=== PATIENT | female | born 1930 | race Caucasian/White ===

== ENCOUNTER → 2016-07-14 | Outpatient (CLI) | payer MEDICARE ==
[2016-07-14 11:03] LABS: ANION GAP 13 (5-19); BLOOD UREA NITROGEN 69 mg/dL (7-20); CALCIUM 10.1 mg/dL (8.4-10.2); CARBON DIOXIDE 27 mmol/L (22-30); CHLORIDE 106 mmol/L (98-107); CREATININE RESULT 3.31 mg/dL (0.52-1.25); GLUCOSE 86 mg/dL (75-110); POTASSIUM 4.1 mmol/L (3.6-5.0); SODIUM 145.6 mmol/L (137-145)
[2016-07-14 17:09] LABS: HEMATOCRIT 29.3 % (36.0-47.0); HGB HCT DIFFERENCE 0.7; MEAN CORPUSCULAR HEMOGLOBIN 31.8 pg (27.0-33.4); MEAN CORPUSCULAR HGB CONC 34.1 g/dL (32.0-36.0); MEAN CORPUSCULAR VOLUME 93 fl (80-97); RED BLOOD COUNT 3.15 10^6/uL (3.72-5.28); RED CELL DISTRIBUTION WIDTH 15.5 % (11.5-14.0)
[2016-07-14 17:38] LABS: WHITE BLOOD COUNT 4.6 10^3/uL (4.0-10.5)
[2016-07-14 18:33] LABS: APPEARANCE,URINE SLIGHTLY-CLOUDY; BILIRUBIN,URINE NEGATIVE (NEGATIVE); GLUCOSE, URINE 50 mg/dL (NEGATIVE); KETONES,URINE NEGATIVE (NEGATIVE); LEUKOCYTE ESTERASE,URINE LARGE (NEGATIVE); NITRITE,URINE NEGATIVE (NEGATIVE); PROTEIN,URINE >=500 mg/dL (NEGATIVE); URINE SPECIFIC GRAVITY 1.012; UROBILINOGEN,URINE NEGATIVE mg/dL (<2.0)
== END ==
LOC: OD 09:49
PROVIDERS: ATTEND Internal Medicine Nephrology
DX: N18.4 Chronic kidney disease, stage 4 (severe) (principal); N39.0 Urinary tract infection, site not specified; R80.9 Proteinuria, unspecified; D64.9 Anemia, unspecified; R31.9 Hematuria, unspecified
CPT/HCPCS: 36415; 80048; 81001; 82728; 83540; 83550; 85027; 87086

== ENCOUNTER → 2016-08-14 | Outpatient (CLI) | payer MEDICARE | LOC: OD 09:33 | PROVIDERS: ATTEND Internal Medicine Nephrology | DX: D64.9 Anemia, unspecified (principal); N18.4 Chronic kidney disease, stage 4 (severe) | CPT/HCPCS: 36415; 82728; 83540; 83550 ==

== ENCOUNTER → 2016-09-12 | Outpatient (CLI) | payer MEDICARE ==
[2016-09-12 10:15] LABS: HEMATOCRIT 27.2 % (36.0-47.0); HEMOGLOBIN 9.2 g/dL (12.0-15.5); HGB HCT DIFFERENCE 0.4; MEAN CORPUSCULAR HEMOGLOBIN 32.1 pg (27.0-33.4); MEAN CORPUSCULAR VOLUME 95 fl (80-97); RED BLOOD COUNT 2.88 10^6/uL (3.72-5.28); RED CELL DISTRIBUTION WIDTH 16.7 % (11.5-14.0)
== END ==
LOC: OD 08:59
PROVIDERS: ATTEND Internal Medicine Nephrology
DX: N18.3 Chronic kidney disease, stage 3 (moderate) (principal); D64.9 Anemia, unspecified
CPT/HCPCS: 36415; 82728; 83540; 83550; 85027

== ENCOUNTER → 2016-11-10 | Outpatient (CLI) | payer MEDICARE ==
[2016-11-10 09:37] LABS: ALANINE AMINOTRANSFERASE 26 U/L (9-52); ALBUMIN 3.8 g/dL (3.5-5.0); ALKALINE PHOSPHATASE 137 U/L (38-126); ANION GAP 10 (5-19); ASPARTATE AMINO TRANSFERASE 20 U/L (14-36); BILIRUBIN,DIRECT 0.6 mg/dL (0.0-0.4); BILIRUBIN,TOTAL 0.6 mg/dL (0.2-1.3); BLOOD UREA NITROGEN 61 mg/dL (7-20); CARBON DIOXIDE 25 mmol/L (22-30); CHLORIDE 106 mmol/L (98-107); CREATININE RESULT 3.86 mg/dL (0.52-1.25); GLUCOSE 88 mg/dL (75-110); POTASSIUM 4.3 mmol/L (3.6-5.0); SODIUM 141.3 mmol/L (137-145); TOTAL PROTEIN 6.6 g/dL (6.3-8.2)
[2016-11-10 11:48] LABS: HEMATOCRIT 29.5 % (36.0-47.0); HGB HCT DIFFERENCE 0.5; MEAN CORPUSCULAR HEMOGLOBIN 33.5 pg (27.0-33.4); MEAN CORPUSCULAR VOLUME 99 fl (80-97); RED BLOOD COUNT 2.99 10^6/uL (3.72-5.28); RED CELL DISTRIBUTION WIDTH 14.9 % (11.5-14.0); WHITE BLOOD COUNT 4.6 10^3/uL (4.0-10.5)
== END ==
LOC: OD 08:40
PROVIDERS: ATTEND Internal Medicine Nephrology
DX: N18.4 Chronic kidney disease, stage 4 (severe) (principal); D64.9 Anemia, unspecified; R80.9 Proteinuria, unspecified; I50.9 Heart failure, unspecified
CPT/HCPCS: 36415; 80053; 82728; 83540; 83550; 85027

== ENCOUNTER → 2017-02-13 | Outpatient (CLI) | payer MEDICARE ==
[2017-02-13 11:09] LABS: HEMATOCRIT 30.2 % (36.0-47.0); HEMOGLOBIN 9.9 g/dL (12.0-15.5); HGB HCT DIFFERENCE -0.5; MEAN CORPUSCULAR HGB CONC 32.7 g/dL (32.0-36.0); MEAN CORPUSCULAR VOLUME 101 fl (80-97); RED BLOOD COUNT 2.99 10^6/uL (3.72-5.28); RED CELL DISTRIBUTION WIDTH 16.4 % (11.5-14.0); WHITE BLOOD COUNT 3.4 10^3/uL (4.0-10.5)
[2017-02-13 11:39] LABS: ANION GAP 13 (5-19); BLOOD UREA NITROGEN 71 mg/dL (7-20); CALCIUM 9.4 mg/dL (8.4-10.2); CARBON DIOXIDE 21 mmol/L (22-30); CHLORIDE 108 mmol/L (98-107); CREATININE RESULT 3.51 mg/dL (0.52-1.25); GLUCOSE 207 mg/dL (75-110); MAGNESIUM 2.3 mg/dL (1.6-2.3); POTASSIUM 4.2 mmol/L (3.6-5.0); SODIUM 141.6 mmol/L (137-145)
[2017-02-13 11:59] LABS: APPEARANCE,URINE SLIGHTLY-CLOUDY; BILIRUBIN,URINE NEGATIVE (NEGATIVE); GLUCOSE, URINE 50 mg/dL (NEGATIVE); KETONES,URINE NEGATIVE (NEGATIVE); LEUKOCYTE ESTERASE,URINE MODERATE (NEGATIVE); NITRITE,URINE NEGATIVE (NEGATIVE); PROTEIN,URINE >=500 mg/dL (NEGATIVE); URINE SPECIFIC GRAVITY 1.011; UROBILINOGEN,URINE NEGATIVE mg/dL (<2.0)
== END ==
LOC: OD 10:17
PROVIDERS: ATTEND Internal Medicine Nephrology
DX: N18.4 Chronic kidney disease, stage 4 (severe) (principal); D64.9 Anemia, unspecified; R80.9 Proteinuria, unspecified; E11.9 Type 2 diabetes mellitus without complications
CPT/HCPCS: 36415; 80048; 81001; 82728; 83540; 83550; 83735; 85027

== ENCOUNTER → 2017-05-18 | Outpatient (CLI) | payer MEDICARE ==
[2017-05-18 11:58] LABS: HEMATOCRIT 33.1 % (36.0-47.0); HGB HCT DIFFERENCE -0.1; MEAN CORPUSCULAR HGB CONC 33.4 g/dL (32.0-36.0); MEAN CORPUSCULAR VOLUME 99 fl (80-97); RED BLOOD COUNT 3.35 10^6/uL (3.72-5.28); RED CELL DISTRIBUTION WIDTH 16.2 % (11.5-14.0); WHITE BLOOD COUNT 4.2 10^3/uL (4.0-10.5)
== END ==
LOC: OD 10:33
PROVIDERS: ATTEND Internal Medicine Nephrology
DX: N18.4 Chronic kidney disease, stage 4 (severe) (principal); D64.9 Anemia, unspecified
CPT/HCPCS: 36415; 82728; 83540; 83550; 85027

== ENCOUNTER → 2017-06-15 | Outpatient (CLI) | payer MEDICARE ==
[2017-06-15 11:31] LABS: HEMATOCRIT 30.7 % (36.0-47.0); HEMOGLOBIN 10.2 g/dL (12.0-15.5); HGB HCT DIFFERENCE -0.1; MEAN CORPUSCULAR HEMOGLOBIN 32.6 pg (27.0-33.4); MEAN CORPUSCULAR HGB CONC 33.2 g/dL (32.0-36.0); MEAN CORPUSCULAR VOLUME 98 fl (80-97); RED BLOOD COUNT 3.13 10^6/uL (3.72-5.28); WHITE BLOOD COUNT 5.3 10^3/uL (4.0-10.5)
[2017-06-15 11:50] LABS: APPEARANCE,URINE SLIGHTLY-CLOUDY; BILIRUBIN,URINE NEGATIVE (NEGATIVE); GLUCOSE, URINE 50 mg/dL (NEGATIVE); KETONES,URINE NEGATIVE (NEGATIVE); LEUKOCYTE ESTERASE,URINE SMALL (NEGATIVE); NITRITE,URINE NEGATIVE (NEGATIVE); PROTEIN,URINE >=500 mg/dL (NEGATIVE); URINE SPECIFIC GRAVITY 1.011; UROBILINOGEN,URINE NEGATIVE mg/dL (<2.0)
[2017-06-15 12:11] LABS: ANION GAP 16 (5-19); BLOOD UREA NITROGEN 62 mg/dL (7-20); CALCIUM 9.7 mg/dL (8.4-10.2); CARBON DIOXIDE 19 mmol/L (22-30); CHLORIDE 112 mmol/L (98-107); CREATININE RESULT 4.32 mg/dL (0.52-1.25); GLUCOSE 108 mg/dL (75-110); MAGNESIUM 1.9 mg/dL (1.6-2.3); POTASSIUM 4.1 mmol/L (3.6-5.0); SODIUM 146.5 mmol/L (137-145)
[2017-06-15 12:50] LABS: URINE CREATININE 56.8 mg/dL (15-278)
[2017-06-15 13:18] LABS: URINE PROTEIN 732.1 mg/dL (<12)
== END ==
LOC: OD 11:06
PROVIDERS: ATTEND Internal Medicine Nephrology
DX: I12.9 Hypertensive chronic kidney disease with stage 1 through stage 4 chronic kidney disease, or unspecified chronic kidney disease (principal); N18.9 Chronic kidney disease, unspecified; E11.9 Type 2 diabetes mellitus without complications; R80.9 Proteinuria, unspecified; I50.9 Heart failure, unspecified
CPT/HCPCS: 36415; 80048; 81001; 82570; 83735; 84156; 85027

== ENCOUNTER → 2017-07-07 | Outpatient (CLI) | payer MEDICARE ==
[2017-07-07 10:17] LABS: HEMATOCRIT 29.3 % (36.0-47.0); HEMOGLOBIN 9.6 g/dL (12.0-15.5); MEAN CORPUSCULAR HEMOGLOBIN 32.2 pg (27.0-33.4); MEAN CORPUSCULAR HGB CONC 32.8 g/dL (32.0-36.0); MEAN CORPUSCULAR VOLUME 98 fl (80-97); PLATELET COUNT 190 10^3/uL (150-450); RED BLOOD COUNT 2.98 10^6/uL (3.72-5.28); RED CELL DISTRIBUTION WIDTH 16.3 % (11.5-14.0); WHITE BLOOD COUNT 4.1 10^3/uL (4.0-10.5)
[2017-07-07 10:40] LABS: ANION GAP 15 (5-19); BLOOD UREA NITROGEN 61 mg/dL (7-20); CALCIUM 9.9 mg/dL (8.4-10.2); CARBON DIOXIDE 17 mmol/L (22-30); CHLORIDE 112 mmol/L (98-107); GLUCOSE 55 mg/dL (75-110); IRON(TIBC) 89.1 ug/dL (37-170); MAGNESIUM 2.2 mg/dL (1.6-2.3); POTASSIUM 4.8 mmol/L (3.6-5.0); SODIUM 144.2 mmol/L (137-145)
== END ==
LOC: OD 09:09
PROVIDERS: ATTEND Internal Medicine Nephrology
DX: N18.4 Chronic kidney disease, stage 4 (severe) (principal); D64.9 Anemia, unspecified; R80.9 Proteinuria, unspecified; I50.9 Heart failure, unspecified
CPT/HCPCS: 36415; 80048; 82728; 83540; 83550; 83735; 85027

== ENCOUNTER → 2017-08-03 | Outpatient (CLI) | payer MEDICARE ==
[2017-08-03 09:53] LABS: ABSOLUTE EOSINOPHILS # (AUTO) 0.1 10^3/uL (0.0-0.6); ABSOLUTE LYMPHOCYTES (AUTO) 0.8 10^3/uL (0.5-4.7); ABSOLUTE MONOCYTES (AUTO) 0.4 10^3/uL (0.1-1.4); ABSOLUTE NEUT (AUTO) 3.1 10^3/uL (1.7-8.2); BASOPHILS % (AUTO) 0.7 % (0-2); EOSINOPHILS % (AUTO) 1.9 % (0-6); HEMATOCRIT 27.1 % (36.0-47.0); HEMOGLOBIN 8.8 g/dL (12.0-15.5); LYMPHOCYTES % (AUTO) 18.4 % (13-45); MEAN CORPUSCULAR HEMOGLOBIN 32.6 pg (27.0-33.4); MEAN CORPUSCULAR HGB CONC 32.4 g/dL (32.0-36.0); MEAN CORPUSCULAR VOLUME 101 fl (80-97); PLATELET COUNT 265 10^3/uL (150-450); RED BLOOD COUNT 2.69 10^6/uL (3.72-5.28); TOTAL CELLS COUNTED % (AUTO) 100 %; WHITE BLOOD COUNT 4.4 10^3/uL (4.0-10.5)
[2017-08-03 10:11] LABS: ALANINE AMINOTRANSFERASE 22 U/L (9-52); ALBUMIN 3.6 g/dL (3.5-5.0); ALKALINE PHOSPHATASE 112 U/L (38-126); ANION GAP 11 (5-19); ASPARTATE AMINO TRANSFERASE 20 U/L (14-36); BILIRUBIN,DIRECT 0.4 mg/dL (0.0-0.4); BILIRUBIN,TOTAL 0.4 mg/dL (0.2-1.3); BLOOD UREA NITROGEN 62 mg/dL (7-20); CALCIUM 9.7 mg/dL (8.4-10.2); CARBON DIOXIDE 20 mmol/L (22-30); CHLORIDE 111 mmol/L (98-107); GLUCOSE 90 mg/dL (75-110); POTASSIUM 4.3 mmol/L (3.6-5.0); SODIUM 141.7 mmol/L (137-145); TOTAL PROTEIN 5.9 g/dL (6.3-8.2)
[2017-08-03 10:12] LABS: AMORPHOUS SEDIMENT,URINE TRACE /HPF; APPEARANCE,URINE SLIGHTLY-CLOUDY; BILIRUBIN,URINE NEGATIVE (NEGATIVE); COLOR,URINE YELLOW; GLUCOSE, URINE 50 mg/dL (NEGATIVE); KETONES,URINE NEGATIVE (NEGATIVE); LEUKOCYTE ESTERASE,URINE SMALL (NEGATIVE); NITRITE,URINE NEGATIVE (NEGATIVE); PROTEIN,URINE >=500 mg/dL (NEGATIVE); URINE SPECIFIC GRAVITY 1.018; UROBILINOGEN,URINE NEGATIVE mg/dL (<2.0)
[2017-08-03 10:23] LABS: URINE CREATININE 102.8 mg/dL (15-278)
[2017-08-03 11:17] LABS: UR PRO/CREAT RATIO RESULT 22.6 mg/mg (0.0-0.2); URINE PROTEIN 2326.8 mg/dL (<12)
== END ==
LOC: OD 09:04
PROVIDERS: ATTEND Family Medicine
DX: N18.4 Chronic kidney disease, stage 4 (severe) (principal); D64.9 Anemia, unspecified; E11.9 Type 2 diabetes mellitus without complications; M10.00 Idiopathic gout, unspecified site; J30.81 Allergic rhinitis due to animal (cat) (dog) hair and dander; L23.81 Allergic contact dermatitis due to animal (cat) (dog) dander
CPT/HCPCS: 36415; 80053; 81001; 82570; 83970; 84100; 84156; 85025

== ENCOUNTER 2017-08-12 18:04 | Inpatient (IN) | payer MEDICARE ==
--- NOTE | 2017-08-12 19:28 | RADIOLOGY REPORT (SQ) ---
EXAM DESCRIPTION: CHEST SINGLE VIEW COMPLETED DATE/TIME: 08/12/2017 7:03 pm REASON FOR STUDY: SOB COMPARISON: 11/14/2014 NUMBER OF VIEWS: One view. TECHNIQUE: Single frontal radiographic view of the chest acquired. LIMITATIONS: None. FINDINGS: LUNGS AND PLEURA: No opacities, masses or pneumothorax. No pleural effusion. MEDIASTINUM AND HILAR STRUCTURES: No masses. Contour normal. HEART AND VASCULAR STRUCTURES: Heart enlarged without failure. Normal vasculature. BONES: No acute findings. HARDWARE: None in the chest. OTHER: No other significant finding. IMPRESSION: No acute findings in the chest. TECHNICAL DOCUMENTATION: JOB ID: [id number] [employer]- All Rights Reserved
[2017-08-12 19:40] LABS: ABSOLUTE LYMPHOCYTES (AUTO) 0.6 10^3/uL (0.5-4.7); ABSOLUTE MONOCYTES (AUTO) 0.5 10^3/uL (0.1-1.4); ABSOLUTE NEUT (AUTO) 5.8 10^3/uL (1.7-8.2); BASOPHILS % (AUTO) 0.3 % (0-2); EOSINOPHILS % (AUTO) 0.5 % (0-6); HEMATOCRIT 27.4 % (36.0-47.0); HEMOGLOBIN 9.1 g/dL (12.0-15.5); LYMPHOCYTES % (AUTO) 8.4 % (13-45); MEAN CORPUSCULAR HEMOGLOBIN 33.2 pg (27.0-33.4); MEAN CORPUSCULAR HGB CONC 33.1 g/dL (32.0-36.0); MEAN CORPUSCULAR VOLUME 100 fl (80-97); MONOCYTES % (AUTO) 7.6 % (3-13); PLATELET COUNT 202 10^3/uL (150-450); RED BLOOD COUNT 2.73 10^6/uL (3.72-5.28); SEGMENTED NEUTROPHILS % (AUTO) 83.2 % (42-78); TOTAL CELLS COUNTED % (AUTO) 100 %; WHITE BLOOD COUNT 6.9 10^3/uL (4.0-10.5)
[2017-08-12 19:57] LABS: ALANINE AMINOTRANSFERASE 21 U/L (9-52); ALBUMIN 3.5 g/dL (3.5-5.0); ALKALINE PHOSPHATASE 127 U/L (38-126); ANION GAP 12 (5-19); ASPARTATE AMINO TRANSFERASE 21 U/L (14-36); BILIRUBIN,DIRECT 0.2 mg/dL (0.0-0.4); BILIRUBIN,TOTAL 0.2 mg/dL (0.2-1.3); BLOOD UREA NITROGEN 64 mg/dL (7-20); CALCIUM 9.6 mg/dL (8.4-10.2); CARBON DIOXIDE 18 mmol/L (22-30); CHLORIDE 112 mmol/L (98-107); CREATINE KINASE 105 U/L (30-135); GLUCOSE 91 mg/dL (75-110); POTASSIUM 4.5 mmol/L (3.6-5.0); SODIUM 142.3 mmol/L (137-145); TOTAL PROTEIN 5.7 g/dL (6.3-8.2)
[2017-08-12 20:10] LABS: CREATINE KINASE MB 2.55 ng/mL (<4.55); NT PRO BNP 3790 pg/mL (<450)
[2017-08-12 20:12] LABS: TROPONIN I < 0.012 ng/mL
[2017-08-12] MEDS ORDERED: FUROSEMIDE INJ/PF 20 MG/2 ML SDV IV ONE ×2 (20:17→20:50)
--- NOTE | 2017-08-12 20:46 | ER Document Report ---
ED Respiratory Problem - General Chief Complaint: Breathing Difficulty Stated Complaint: DIFFICULTY BREATHING Time Seen by Provider: 08/12/17 19:20 Mode of Arrival: Wheelchair Information source: Patient, Relative Notes: 87-year-old female presents to ED for complaint of difficulty breathing for the last several days. She states she cannot lay down. She is able to speak in full sentences while sitting upright. She is a patient of Dr. Schmidt for end- stage renal disease. She states she has not started on dialysis yet but that this is probably good to me she is going to start on it now. She has 3-4+ pitting edema bilaterally. She states this is her normal. Patient denies any chest pain cough cold symptoms or any syncope. She states she just has a hard time laying down due to shortness of breath. TRAVEL OUTSIDE OF THE [place] IN LAST 30 DAYS: No - HPI Patient complains to provider of: Short of breath - States she cannot lay down and breathe Onset: Other - and is becoming more more short of breath today Duration: Worse/persistent Quality of pain: No pain Severity: None Pain Level: Denies Context: Other - Stage renal disease Short of Breath: Moderate Sputum amount: None Associated symptoms: Short of breath. denies: Chest pain/discomfort, Chills, Congestion, Cough Similar symptoms previously: Yes Recently seen / treated by doctor: No - Related Data Allergies/Adverse Reactions: adhesive tape [Adhesive Tape] Allergy (Unknown, Verified 08/12/17 18:48) iodine [Iodine] Allergy (Unknown, Verified 08/12/17 18:48) Penicillins Allergy (Unknown, Verified 08/12/17 18:48) Shellfish * [Shellfish] Allergy (Unknown, Verified 08/12/17 18:48) Sulfa (Sulfonamide Antibiotics) Allergy (Unknown, Verified 08/12/17 18:48) Past Medical History - General Information source: Patient - Social History Smoking Status: Never Smoker Cigarette use (# per day): No Chew tobacco use (# tins/day): No Smoking Education Provided: No Frequency of alcohol use: None Drug Abuse: None Lives with: Family Family History: Reviewed & Not Pertinent Patient has suicidal ideation: No Patient has homicidal ideation: No - Past Medical History Cardiac Medical History: Reports: Hx Hypercholesterolemia, Hx Hypertension Pulmonary Medical History: Reports: Hx Asthma - mild Neurological Medical History: Reports: Hx Cerebrovascular Accident - Rt Orbital Approx 2011 Endocrine Medical History: Reports: Hx Diabetes Mellitus Type 2, Hx Hypothyroidism Renal/ Medical History: Reports: Hx End Stage Renal Disease Malignancy Medical History: Reports: None GI Medical History: Reports: None Musculoskeltal Medical History: Reports Hx Arthritis Skin Medical History: Reports None Psychiatric Medical History: Reports: None Traumatic Medical History: Reports: None Infectious Medical History: Reports: None Past Surgical History: Reports: Hx Orthopedic Surgery - right and left knee replacement - Immunizations Hx Diphtheria, Pertussis, Tetanus Vaccination: No Hx Pneumococcal Vaccination: 02/04/14 Review of Systems - Review of Systems Constitutional: No symptoms reported EENT: No symptoms reported Cardiovascular: No symptoms reported Respiratory: Short of breath, Other - Cannot catch her breath when laying flat or after a few steps. Gastrointestinal: No symptoms reported Genitourinary: No symptoms reported Female Genitourinary: No symptoms reported Musculoskeletal: No symptoms reported Skin: No symptoms reported Hematologic/Lymphatic: No symptoms reported Neurological/Psychological: No symptoms reported -: Yes All other systems reviewed and negative Physical Exam - Vital signs Vitals: Temp Pulse BP Pulse Ox 97.9 F 76 183/60 H 97 08/12/17 18:12 08/12/17 18:12 08/12/17 18:12 08/12/17 18:12 Interpretation: Normal - General General appearance: Appears well, Alert In distress: Mild Notes: Patient states she has no pain or discomfort no shortness of breath as long she sits straight up. If she tries to lie down at all she becomes very short of breath and cannot catch her breath. She is a very pale elderly obese woman who is in no acute distress as long as she is sitting upright. - HEENT Head: Normocephalic, Atraumatic Eyes: Normal Pupils: PERRL - Respiratory Respiratory status: No respiratory distress Chest status: Nontender Breath sounds: Decreased air movement, Wheezing. No: Rales, Rhonchi, Stridor Chest palpation: Normal - Cardiovascular Rhythm: Regular Heart sounds: Normal auscultation Murmur: No - Abdominal Inspection: Normal Distension: No distension Bowel sounds: Normal Tenderness: Nontender Organomegaly: No organomegaly - Back Back: Normal, Nontender - Extremities General upper extremity: Normal inspection, Nontender, Normal color, Normal ROM , Normal temperature General lower extremity: Normal inspection, Nontender, Normal color, Normal ROM , Normal temperature, Normal weight bearing. No: Lamont's sign - Neurological Neuro grossly intact: Yes Cognition: Normal Orientation: AAOx4 [place] Coma Scale Eye Opening: Spontaneous [place] Coma Scale Verbal: Oriented [place] Coma Scale Motor: Obeys Commands [place] Coma Scale Total: 15 Speech: Normal Motor strength normal: LUE, RUE, LLE, RLE Sensory: Normal - Psychological Associated symptoms: Normal affect, Normal mood - Skin Skin Temperature: Warm Skin Moisture: Dry Skin Color: Normal Course - Re-evaluation Re-evalutation: 08/12/17 20:54 Consulted , who recommended given 20 mg of IV Lasix and calling the hospitalist to have her admitted. Spoke with Dr. Avila the hospitalist who stated that yes she needed to come in and asked who her c java developer was I informed her the c java developer is Dr. Schmidt she said she will come by and admit the patient to telemetry for fluid overload and end-stage renal disease. Patient was ordered the 20 mg of IV Lasix. - Vital Signs Vital signs: Temp Pulse Resp BP Pulse Ox 97.9 F 76 9 L 187/72 H 100 08/12/17 18:12 08/12/17 18:12 08/13/17 08:16 08/13/17 08:16 08/13/17 08:16 - Laboratory Result Diagrams: 08/12/17 19:16 08/13/17 05:55 Laboratory results interpreted by me: 08/12/17 08/12/17 08/12/17 19:16 19:16 19:16 RBC 2.73 L Hgb 9.1 L Hct 27.4 L MCV 100 H RDW 16.0 H Seg Neutrophils % 83.2 H Lymphocytes % 8.4 L Chloride 112 H Carbon Dioxide 18 L BUN 64 H Creatinine 4.90 H Est GFR ( Amer) 10 L Est GFR (Non-Af Amer) 8 L Alkaline Phosphatase 127 H NT-Pro-B Natriuret Pep 3790 H Total Protein 5.7 L - Diagnostic Test Radiology reviewed: Image reviewed, Reports reviewed Discharge - Discharge Clinical Impression: ESRD (end stage renal disease) Fluid overload Qualifiers: Hypervolemia type: unspecified Qualified Code(s): E87.70 - Fluid overload, unspecified Disposition: ADMITTED INPATIENT Admitting Provider: Hospitalist - [facility] Admitted: Telemetry
[2017-08-12] MEDS ORDERED: FUROSEMIDE INJ/PF 100 MG/10 ML SDV IV ONE (21:00)
--- NOTE | 2017-08-12 21:23 | EKG REPORT ---
SEVERITY:- ABNORMAL ECG - SINUS RHYTHM CONSIDER ANTEROSEPTAL INFARCT : Confirmed by: Hailey Nova 12-Aug-2017 21:21:59
[2017-08-12 21:30] LABS: APPEARANCE,URINE CLEAR; BILIRUBIN,URINE NEGATIVE (NEGATIVE); COLOR,URINE YELLOW; GLUCOSE, URINE 50 mg/dL (NEGATIVE); KETONES,URINE NEGATIVE (NEGATIVE); LEUKOCYTE ESTERASE,URINE NEGATIVE (NEGATIVE); NITRITE,URINE NEGATIVE (NEGATIVE); PROTEIN,URINE >=500 mg/dL (NEGATIVE); URINE SPECIFIC GRAVITY 1.011; UROBILINOGEN,URINE NEGATIVE mg/dL (<2.0)
[2017-08-12] MEDS ORDERED: DEXTROSE 50%-WATER 25 GM/50 ML DISP.SYRIN IV PRN ×2 (21:38)
[2017-08-12] MEDS ORDERED: INSULIN LISPRO 100 UNIT/ML 3 ML VIAL SUBCUT PRN (21:38)
[2017-08-12] MEDS ORDERED: DEXTROSE 40% GEL 15 GM TUBE PO PRN ×2 (21:38)
[2017-08-12] MEDS ORDERED: GLUCAGON,HUMAN RECOMB 1 MG INJ IM PRN (21:38)
[2017-08-12] MEDS ORDERED: METOLAZONE 2.5 MG TABLET PO ONE (23:00)
--- NOTE | 2017-08-13 00:13 | PDOC H&P ---
History of Present Illness Admission Date/PCP: 08/12/17 20:49 Patient complains of: Cannot lay flat and congested History of Present Illness: ARSALAN COLLINS is a 87 year old female with a history of hypertension, TIA, bradycardia, type 2 diabetes, hypercholesterolemia, end-stage renal disease not on dialysis followed by Dr. Schmidt. Presenting with a gradual onset of worsening edema. Patient states since after Deisy she has been noticing that the edema is getting worse. Patient has been evaluated by Dr. Schmidt and Lasix has been adjusted. Last Thursday they went to see Dr. Schmidt and her Lasix had been adjusted to 2 pills in the morning and 4 pills in the evening. Patient has been on this regimen for about a week however patient continues to gain weight. Patient daughter stated that she thought her legs look more swollen. Patient noticed that today she could not recline or lay down. Patient states that laying down flat is not an issue for her. She also noticed that she is very short of breath with activity. She denies any shortness of breath at rest. Patient also complaining of coughing but nothing comes out. Patient denies any fevers or chills she has been eating well. Besides not being able to lie flat patient states is the best she has felt in a long time. In the ED patient was found to have a BNP of 37,090. Creatinine appears fairly stable at 4.0. Her remaining electrolytes were pretty much stable. Patient was given 20 of IV Lasix in the ED. Chest x-ray was clear. Hospitalist was called to admit patient for volume overload due to her end-stage renal disease. Past Medical History Cardiac Medical History: Reports: Hyperlipidema, Hypertension Denies: Atrial Fibrillation, Congestive Heart Failure, Coronary Artery Disease, Myocardial Infarction, Peripheral Vascular Disease, Pulmonary Embolism , Heart Murmur Pulmonary Medical History: Reports: Asthma - mild Denies: Bronchitis, Chronic Obstructive Pulmonary Disease (COPD), Pneumonia, Respiratory Failure, Sleep Apnea, Tuberculosis Neurological Medical History: Denies: Seizures Endocrine Medical History: Reports: Diabetes Mellitus Type 2, Hypothyroidism Denies: Hyperthyroidism Renal/ Medical History: Reports: End Stage Renal Disease Malignancy Medical History: Reports: None Denies: Leukemia, Lung Cancer GI Medical History: Reports: None Musculoskeltal Medical History: Reports: Arthritis Skin Medical History: Reports: None Psychiatric Medical History: Reports: None Denies: Dementia, Depression Traumatic Medical History: Reports: None Hematology: Reports: Anemia Denies: Hemophilia, Sickle Cell Disease Infectious Medical History: Reports: None Denies: HIV Past Surgical History Past Surgical History: Reports: Orthopedic Surgery - right and left knee replacement Denies: Appendectomy, Section, Cholecystectomy, Coronary Artery Bypass Graft, Gastric Bypass Surgery, Herniorrhaphy, Hysterectomy, Mastectomy, Pacemaker, Tonsillectomy, Tubal Ligation Social History Lives with: Family Smoking Status: Never Smoker Frequency of Alcohol Use: None Hx Recreational Drug Use: No Hx Prescription Drug Abuse: No - Advance Directive Resuscitation Status: Full Code Family History Family History: Other - Meningioma Parental Family History Reviewed: No Children Family History Reviewed: No Sibling(s) Family History Reviewed.: No Medication/Allergy Home Medications: Gemfibrozil [Lopid 600 mg Tablet] 600 mg PO BID 12/30/11 Insulin Glargine,Hum.rec.anlog [Lantus Insulin 100 Unit/mL] 6 unit SQ DAILY 30/06 Insulin Lispro [Humalog] 0 unit SQ ASDIR PRN 12/30/11 Levothyroxine Sodium [Synthroid 0.1 mg Tablet] 112 mcg PO DAILY 12/30/11 Tramadol HCl [Ultram 50 mg Tablet] 50 mg PO BID 12/30/11 Clonidine HCl [Catapres 0.1 mg Tablet] 0.2 mg PO TID 01/03/12 Furosemide [Lasix 40 mg Tablet] 80 mg PO DAILY 02/02/14 Omeprazole 20 mg PO DAILY 02/02/14 Allopurinol [Zyloprim 100 mg Tablet] 100 mg PO DAILY 10/17/15 Carvedilol [Coreg] 2 tab PO Q12 10/17/15 Furosemide [Lasix 40 mg Tablet] 40 mg PO QPM 10/17/15 Hydralazine HCl [Apresoline 50 mg Tablet] 100 mg PO TID 10/17/15 Magnesium Oxide 400 mg PO DAILY 10/17/15 Ezetimibe [Zetia 10 mg Tablet] 10 mg PO ASDIR PRN 08/12/17 Valsartan [Diovan] 320 mg PO DAILY 08/12/17 Allergies/Adverse Reactions: adhesive tape [Adhesive Tape] Allergy (Unknown, Verified 08/12/17 18:48) iodine [Iodine] Allergy (Unknown, Verified 08/12/17 18:48) Penicillins Allergy (Unknown, Verified 08/12/17 18:48) Shellfish * [Shellfish] Allergy (Unknown, Verified 08/12/17 18:48) Sulfa (Sulfonamide Antibiotics) Allergy (Unknown, Verified 08/12/17 18:48) Review of Systems Constitutional: ABSENT: chills, fever(s), headache(s), weight gain, weight loss Eyes: ABSENT: visual disturbances Ears: PRESENT: hearing changes Cardiovascular: PRESENT: edema, orthropnea. ABSENT: chest pain, dyspnea on exertion, palpitations Respiratory: PRESENT: cough, dyspnea. ABSENT: hemoptysis Gastrointestinal: ABSENT: abdominal pain, constipation, diarrhea, hematemesis, hematochezia, nausea, vomiting Genitourinary: ABSENT: dysuria, hematuria Musculoskeletal: ABSENT: joint swelling Integumentary: ABSENT: rash, wounds Neurological: ABSENT: abnormal gait, abnormal speech, confusion, dizziness, focal weakness, syncope Psychiatric: ABSENT: anxiety, depression, homidical ideation, suicidal ideation Endocrine: ABSENT: cold intolerance, heat intolerance, polydipsia, polyuria Hematologic/Lymphatic: ABSENT: easy bleeding, easy bruising Physical Exam Vital Signs: Temp Pulse Resp BP Pulse Ox 97.9 F 76 20 175/64 H 100 08/12/17 18:12 08/12/17 18:12 08/12/17 22:08 08/12/17 22:08 08/12/17 22:08 General appearance: PRESENT: no acute distress, well-developed, well-nourished Head exam: PRESENT: atraumatic, normocephalic Eye exam: PRESENT: PERRLA, other - Wearing glasses. ABSENT: scleral icterus Ear exam: PRESENT: normal external ear exam Mouth exam: PRESENT: moist Neck exam: ABSENT: carotid bruit, JVD, lymphadenopathy, thyromegaly Respiratory exam: PRESENT: clear to auscultation darcy, unlabored. ABSENT: rales , rhonchi, wheezes Cardiovascular exam: PRESENT: RRR. ABSENT: diastolic murmur, rubs, systolic murmur Pulses: PRESENT: normal dorsalis pedis pul Vascular exam: PRESENT: normal capillary refill GI/Abdominal exam: PRESENT: normal bowel sounds, soft. ABSENT: distended, guarding, mass, organolmegaly, rebound, tenderness Rectal exam: PRESENT: deferred Extremities exam: PRESENT: full ROM, pedal edema, +1 edema - Nonpitting. ABSENT : calf tenderness, clubbing Musculoskeletal exam: PRESENT: other - Left knee scar Neurological exam: PRESENT: alert, awake, oriented to person, oriented to place , oriented to time, oriented to situation, CN II-XII grossly intact. ABSENT: motor sensory deficit Psychiatric exam: PRESENT: appropriate affect, normal mood. ABSENT: homicidal ideation, suicidal ideation Skin exam: PRESENT: dry, intact, warm. ABSENT: cyanosis, rash Results Laboratory Results: 08/12/17 21:10 Urine Color YELLOW Urine Appearance CLEAR Urine pH 6.0 Ur Specific [place] 1.011 Urine Protein >=500 H Urine Glucose (UA) 50 H Urine Ketones NEGATIVE Urine Blood NEGATIVE Urine Nitrite NEGATIVE Ur Leukocyte Esterase NEGATIVE Urine WBC (Auto) 4 Urine RBC (Auto) 3 Impressions: Chest X-Ray 08/12/17 18:51 IMPRESSION: No acute findings in the chest. Assessment & Plan - Diagnosis (1) Dyspnea on exertion Plan: Likely due to volume overload. Patient is not hypoxic or tachycardic. Patient is not dyspneic at rest. Patient has a history of end-stage renal disease not on dialysis. Patient has been retaining more fluid and not responding to her Lasix. Chest x-ray is clear. BNP is elevated however this could be due to her end-stage renal disease and/or possible pulmonary hypertension. Cardiac echo was ordered. Patient last echo was on 11/21/2014. Patient EF was greater than 65 with no diastolic dysfunction at that time. Patient is being diuresed. (2) Fluid overload Qualifiers: Hypervolemia type: unspecified Qualified Code(s): E87.70 - Fluid overload, unspecified Plan: Patient with fluid overload. Patient has end-stage renal disease however is not on dialysis. Patient Lasix has been adjusted several times at as outpatient however patient continues to gain weight. Patient was given a total of 80 of IV Lasix today. We will continue 60 mg IV Lasix twice daily along with metolazone. Patient should be able to lie flat and ambulate without shortness of breath which is her baseline. (3) ESRD (end stage renal disease) Is this a current diagnosis for this admission?: Yes Plan: Patient with end-stage renal disease not yet on dialysis. Patient creatinine is 4.90 and was 4.64 on 08/03/2017. Patient GFR is stable at about 10 or 11. Patient is followed by Dr. Schmidt. Patient still makes urine. At this time, will place a indwelling Gamez catheter to monitor strict I's and O's. Patient given 80 of Lasix in the ED IV. Will continue patient on 60 mg of Lasix twice daily with metolazone in the am. Follow BMP and monitor daily weights. Will monitor electrolytes and replace accordingly. Patient family does not want her to be put on a standing dose of potassium stating that they have had a bad experience prior where the potassium was not monitored and patient was extremely hyperkalemic. Patient would like to take a pill if she has to take it. (4) Hypertension Qualifiers: Hypertension type: essential hypertension Qualified Code(s): I10 - Essential (primary) hypertension Is this a current diagnosis for this admission?: Yes Plan: Continue patient home medications. Suspect that once patient is diuresed blood pressure will be better controlled. (5) Diabetes mellitus Qualifiers: Diabetes mellitus type: type 2 Diabetes mellitus complication detail: with chronic kidney disease Chronic kidney disease stage: stage 5, not on chronic dialysis Is this a current diagnosis for this admission?: Yes Plan: Start patient on sliding scale insulin and monitor. Will check A1c if not recently checked. (6) Macrocytic anemia Is this a current diagnosis for this admission?: Yes Plan: Patient anemia could be due to her chronic renal disease. Hemoglobin is 9.1. Patient hemoglobin was 8.8 on 08/03/2017. Will complete an anemia workup. (7) HLD (hyperlipidemia) Qualifiers: Hyperlipidemia type: unspecified Qualified Code(s): E78.5 - Hyperlipidemia , unspecified Is this a current diagnosis for this admission?: Yes Plan: Continue home medications. - Time Time Spent: 30 to 50 Minutes Anticipated discharge: Home Within: within 48 hours - Inpatient Certification Medical Necessity: Other - She will volume overload and is unable to lie flat or ambulate without extreme shortness of breath. Patient will not be able to be discharged until this improves.
[2017-08-13] MEDS ORDERED: CARVEDILOL 12.5 MG TABLET PO ONE (03:00)
[2017-08-13] MEDS ORDERED: NITROGLYCERIN 2.5 MG (0.1 MG/HR) PATCH.TD24 TD ONE (05:22)
[2017-08-13] MEDS ORDERED: HYDRALAZINE HCL INJ/PF 20 MG/1 ML SDV IV ONE (05:23)
[2017-08-13] MEDS ORDERED: FUROSEMIDE INJ/PF 40 MG/4 ML SDV IV ONE (05:32)
[2017-08-13] MEDS ORDERED: NITROGLYCERIN 2% OINTMENT 1 GM PACKET TP ONE (05:33)
--- NOTE | 2017-08-13 05:37 | Progress Note ---
Provider Note Provider Note: Hypertensive emergency Patient with SBP 200. Patient with worsening SOB. Patient with wheezing at left lung base. Nitropaste applied. Patient given 40mg IV lasix x 1. IV dose of hydralazine given. Portable Chest X ray ordered. ABG ordered. Patient started on bipap. Patient has put out 450cc of urine from earlier today.
[2017-08-13] MEDS ORDERED: LEVOTHYROXINE SODIUM 0.112 MG TABLET PO SCH ×2 (06:00)
[2017-08-13 06:15] LABS: ABSOLUTE RETICS # 0.052 10^6/uL (0.028-0.122); RETICULOCYTE COUNT (AUTO) 1.72 % (0.66-2.85)
[2017-08-13] MEDS: NITROGLYCERIN 2% OINTMENT 1 GM PACKET TP SCH ×4 (06:15→23:20)
[2017-08-13] MEDS: LANSOPRAZOLE 15 MG TAB.RAP.DR PO SCH (06:16)
[2017-08-13 06:24] LABS: ARTERIAL BLOOD BASE EXCESS -6.6 mmol/L; ARTERIAL BLOOD H2CO3 0.97 mmol/L (1.05-1.35); ARTERIAL BLOOD HCO3 17.8 mmol/L (20-26); ARTERIAL BLOOD PCO2 32.3 mmHg (35-45); ARTERIAL BLOOD PH 7.36 (7.35-7.45); ARTERIAL BLOOD PO2 159.2 mmHg (80-100); ARTERIAL BLOOD TOTAL CO2 18.8 mmol/L (21-25)
[2017-08-13 06:25] LABS: ARTERIAL BLOOD FIO2 35%
[2017-08-13 06:32] LABS: ANION GAP 15 (5-19); BLOOD UREA NITROGEN 62 mg/dL (7-20); CALCIUM 10.1 mg/dL (8.4-10.2); CARBON DIOXIDE 16 mmol/L (22-30); CHLORIDE 112 mmol/L (98-107); GLUCOSE 71 mg/dL (75-110); IRON(TIBC) 29.3 ug/dL (37-170); PHOSPHORUS 5.5 mg/dL (2.5-4.5); POTASSIUM 4.4 mmol/L (3.6-5.0); SODIUM 143.2 mmol/L (137-145)
[2017-08-13 06:48] LABS: FREE T4 (FREE THYROXINE) 2.89 ng/dL (0.78-2.19)
[2017-08-13 07:02] LABS: THYROID STIMULATING HORMONE 4.27 uIU/mL (0.47-4.68)
--- NOTE | 2017-08-13 07:15 | RADIOLOGY REPORT (SQ) ---
EXAM DESCRIPTION: CHEST SINGLE VIEW CLINICAL HISTORY: SOB COMPARISON: 08/12/2017 FINDINGS: Single frontal view of the chest. Atherosclerotic calcification and tortuosity of thoracic aorta. Cardiomegaly. Leads overlie the chest. No consolidation, pneumothorax, or pleural effusion. No displaced rib fractures identified. Upper abdominal soft tissues are unremarkable. IMPRESSION: 1. No acute pulmonary process identified. Stable appearance of the chest.
[2017-08-13] MEDS ORDERED: GEMFIBROZIL 600 MG TABLET PO SCH ×2 (08:00→18:00)
[2017-08-13] MEDS ORDERED: LEVOTHYROXINE SODIUM 0.025 MG TABLET PO ONE (08:45)
[2017-08-13] MEDS ORDERED: LEVOTHYROXINE SODIUM 0.1 MG TABLET PO ONE (08:45)
[2017-08-13] MEDS: HYDRALAZINE HCL 50 MG TABLET PO SCH ×3 (09:46→18:28)
[2017-08-13] MEDS: MAGNESIUM OXIDE 400 MG TABLET PO SCH (09:46)
[2017-08-13] MEDS: CLONIDINE HCL 0.1 MG TABLET PO SCH ×3 (09:47→18:27)
[2017-08-13] MEDS: CARVEDILOL 12.5 MG TABLET PO SCH ×2 (09:47→21:30)
[2017-08-13] MEDS ORDERED: VALSARTAN 160 MG TABLET PO SCH (10:00)
[2017-08-13] MEDS ORDERED: FUROSEMIDE INJ/PF 20 MG/2 ML SDV IV SCH ×3 (10:00→14:00)
--- NOTE | 2017-08-13 11:28 | PDOC PROGRESS REPORT ---
Subjective Progress Note for:: 08/13/17 Subjective:: Breathing is better. Daughter is at bedside and is requesting patient to be given Lantus 6 units which have been prescribed in the past by Dr. Schmidt. Review of systems All organ systems evaluated and negative except as in subjective All significant laboratories and diagnostics have been reviewed Reason For Visit: HYPERVOLEMIA,END STAGE RENAL DISEASE Physical Exam Vital Signs: Temp Pulse Resp BP Pulse Ox 97.9 F 76 10 L 194/73 H 100 08/12/17 18:12 08/12/17 18:12 08/13/17 07:31 08/13/17 07:31 08/13/17 07:31 Intake & Output 08/12/17 08/13/17 08/14/17 06:59 06:59 06:59 Output Total 725 Balance -725 Weight 72.575 kg General appearance: PRESENT: no acute distress, cooperative, thin Head exam: PRESENT: atraumatic, normocephalic Eye exam: PRESENT: conjunctiva pink, EOMI, PERRLA Neck exam: PRESENT: full ROM, JVD. ABSENT: lymphadenopathy, tenderness Respiratory exam: PRESENT: crackles, decreased breath sounds Cardiovascular exam: PRESENT: RRR. ABSENT: diastolic murmur, systolic murmur Vascular exam: PRESENT: normal capillary refill GI/Abdominal exam: PRESENT: normal bowel sounds, soft. ABSENT: tenderness Extremities exam: PRESENT: full ROM, +2 edema Neurological exam: PRESENT: alert, awake, oriented to person, oriented to place , CN II-XII grossly intact Psychiatric exam: PRESENT: appropriate affect, normal mood Skin exam: PRESENT: intact, normal color Results Laboratory Results: 08/13/17 05:55 08/12/17 08/13/17 08/13/17 21:10 05:55 05:55 Retic Count (auto) 1.72 Absolute Retic 0.052 Carbonic Acid HCO3/H2CO3 Ratio ABG pH ABG pCO2 ABG pO2 ABG HCO3 ABG O2 Saturation ABG Base Excess FiO2 Sodium 143.2 Potassium 4.4 Chloride 112 H Carbon Dioxide 16 L Anion Gap 15 BUN 62 H Creatinine 5.06 H Est GFR ( Amer) 10 L Est GFR (Non-Af Amer) 8 L Glucose 71 L Calcium 10.1 Phosphorus 5.5 H Magnesium 2.0 Iron 29.3 L TIBC 234 L % Saturation 13 Ferritin 184.00 Vitamin B12 684.0 TSH Free T4 Urine Color YELLOW Urine Appearance CLEAR Urine pH 6.0 Ur Specific [place] 1.011 Urine Protein >=500 H Urine Glucose (UA) 50 H Urine Ketones NEGATIVE Urine Blood NEGATIVE Urine Nitrite NEGATIVE Ur Leukocyte Esterase NEGATIVE Urine WBC (Auto) 4 Urine RBC (Auto) 3 08/13/17 08/13/17 05:55 06:03 Retic Count (auto) Absolute Retic Carbonic Acid 0.97 L HCO3/H2CO3 Ratio 18:1 ABG pH 7.36 ABG pCO2 32.3 L ABG pO2 159.2 H ABG HCO3 17.8 L ABG O2 Saturation 99.0 H ABG Base Excess -6.6 FiO2 35% Sodium Potassium Chloride Carbon Dioxide Anion Gap BUN Creatinine Est GFR ( Amer) Est GFR (Non-Af Amer) Glucose Calcium Phosphorus Magnesium Iron TIBC % Saturation Ferritin Vitamin B12 TSH 4.27 Free T4 2.89 H Urine Color Urine Appearance Urine pH Ur Specific [place] Urine Protein Urine Glucose (UA) Urine Ketones Urine Blood Urine Nitrite Ur Leukocyte Esterase Urine WBC (Auto) Urine RBC (Auto) 08/13/17 05:55 Troponin I 0.017 Impressions: Chest X-Ray 08/13/17 00:00 IMPRESSION: 1. No acute pulmonary process identified. Stable appearance of the chest. Assessment & Plan - Diagnosis (1) Fluid overload Qualifiers: Hypervolemia type: unspecified Qualified Code(s): E87.70 - Fluid overload, unspecified Is this a current diagnosis for this admission?: Yes Plan: We will continue present management (2) Hypertension Qualifiers: Hypertension type: essential hypertension Qualified Code(s): I10 - Essential (primary) hypertension Is this a current diagnosis for this admission?: Yes Plan: Will discontinue Diovan and instead prescribe if Norvasc. Will continue Coreg, hydralazine and clonidine. Watch for bradycardia due to advanced age (3) Hypothyroidism Qualifiers: Hypothyroidism type: acquired Qualified Code(s): E03.9 - Hypothyroidism, unspecified Is this a current diagnosis for this admission?: Yes Plan: Continue outpatient regimen (4) Macrocytic anemia Is this a current diagnosis for this admission?: Yes Plan: Will watch for now (5) CKD (chronic kidney disease) stage 4, GFR 15-29 ml/min Is this a current diagnosis for this admission?: Yes Plan: Likely come relating to fluid overload (6) Diabetes mellitus Qualifiers: Diabetes mellitus type: type 2 Diabetes mellitus complication detail: with chronic kidney disease Chronic kidney disease stage: stage 5, not on chronic dialysis Is this a current diagnosis for this admission?: Yes Plan: Hemoglobin A1c 4.5. Likely at this point time patient does not need any insulin supplementation. Will discuss with family (7) Acute respiratory failure Qualifiers: Respiratory failure complication: unspecified whether with hypoxia or hypercapnia Qualified Code(s): J96.00 - Acute respiratory failure, unspecified whether with hypoxia or hypercapnia Is this a current diagnosis for this admission?: Yes Plan: Patient required BiPAP to improve respiratory distress and will continue - Time Time Spent with patient: 15-24 minutes Medications reviewed and adjusted accordingly: Yes Anticipated discharge: Home with Homehealth Within: within 72 hours - Inpatient Certification Based on my medical assessment, after consideration of the patient's comorbidities, presenting symptoms, or acuity I expect that the services needed warrant INPATIENT care.: Yes I certify that my determination is in accordance with my understanding of Medicare's requirements for reasonable and necessary INPATIENT services [42 CFR 412.3e].: Yes Medical Necessity: Need Close Monitoring Due to Risk of Patient Decompensation, Need For Continuous Telemetry Monitoring - IV diuresis
[2017-08-13] MEDS: ALLOPURINOL 100 MG TABLET PO SCH (12:09)
[2017-08-13] MEDS: METOLAZONE 2.5 MG TABLET PO SCH (12:10)
[2017-08-13] MEDS ORDERED: INSULIN GLARGINE,HUM.REC.ANLOG 300 UNIT/3 ML INSULN.PEN SUBCUT ONE (12:58)
[2017-08-13] MEDS: FUROSEMIDE INJ/PF 40 MG/4 ML SDV IV SCH ×2 (13:41→21:30)
[2017-08-13] MEDS ORDERED: INSULIN LISPRO 100 UNIT/ML 3 ML VIAL INJ SCH (14:00)
[2017-08-13] MEDS ORDERED: CLONIDINE HCL 0.2 MG TABLET PO SCH (14:00)
--- NOTE | 2017-08-13 14:31 | PDOC CONSULTATION ---
Consultation Consult Date: 08/13/17 Consult reason:: ckd History of Present Illness Admission Date/PCP: 08/12/17 20:49 History of Present Illness: ARSALAN COLLINS is a 87 year old female with a history of hypertension, TIA, bradycardia, type 2 diabetes, hypercholesterolemia, CKD 5 not wanting to be on dialysis following with Dr. Schmidt. Came to the ER a week after increasing her lasix dosage to 120mg qam and 80pm did not help to alleviate the swelling. The edema was persistently increasing, her [id number] listened to her lungs at home and determined that they sounded abnormal. Patient at the time could not lay down flat without becoming short of breath. Patient has had this increased swelling since Deisy time. She denies any shortness of breath at rest. Patient also complaining of coughing but nothing comes out. Patient denies any fevers or chills she has been eating well. In the ER she received a couple dosages of lasix and produced a little over 700mL of fluid. At one point this morning she had to be placed on Bipap at 100%. Since this morning she has improved and no longer needs to be on the bipap. Other labs were drawn and found that the patient was found to have a BNP of 37, 090. Creatinine appears fairly stable at 4.0s to low 5s. Her remaining electrolytes were pretty much stable. Chest x-ray was clear. Past Medical History Cardiac Medical History: Reports: Hyperlipidemia Denies: Atrial Fibrillation, Coronary Artery Disease, Heart Murmur, Myocardial Infarction, Peripheral Vascular Disease, Pulmonary Embolism Pulmonary Medical History: Reports: Asthma - mild Denies: Bronchitis, Chronic Obstructive Pulmonary Disease (COPD), Pneumonia, Respiratory Failure, Sleep Apnea, Tuberculosis Neurological Medical History: Denies: Seizures Endocrine Medical History: Reports: Diabetes Mellitus Type 2, Hypothyroidism Denies: Hyperthyroidism Complications of Diabetes: Reports: None Renal/ Medical History: Reports: End Stage Renal Disease Malignancy Medical History: Reports: None Denies: Leukemia, Lung Cancer GI Medical History: Reports: None Musculoskeltal Medical History: Reports: Arthritis Denies: Systemic Lupus Erythematosus Skin Medical History: Reports: None Psychiatric Medical History: Reports: None Denies: Dementia, Depression Traumatic Medical History: Reports: None Infectious Medical History: Reports: None Denies: HIV Past Surgical History Past Surgical History: Reports: Orthopedic Surgery - right and left knee replacement Denies: Appendectomy, Section, Cholecystectomy, Coronary Artery Bypass Graft, Gastric Bypass Surgery, Herniorrhaphy, Hysterectomy, Mastectomy, Pacemaker, Tonsillectomy, Tubal Ligation Social History Lives with: Family Smoking Status: Never Smoker Frequency of Alcohol Use: None Hx Recreational Drug Use: No Hx Prescription Drug Abuse: No - Advance Directive Resuscitation Status: Full Code Family History Parental Family History Reviewed: No Children Family History Reviewed: NA Sibling(s) Family History Reviewed.: NA Medication/Allergy Home Medications: Allopurinol [Zyloprim 100 mg Tablet] 100 mg PO DAILY 08/13/17 Calcitriol [Rocaltrol] 0.5 mcg PO DAILY 08/13/17 Carvedilol [Coreg 25 mg Tablet] 25 mg PO Q12 08/13/17 Clonidine HCl [Catapres 0.2 mg Tablet] 0.2 mg PO Q8 08/13/17 Ergocalciferol (Vitamin D2) [Vitamin D2] 50,000 unit PO MEJIA@1000 08/13/17 Ezetimibe [Zetia 10 mg Tablet] 10 mg PO MOWEFR@1000 08/13/17 Furosemide [Lasix 40 mg Tablet] 80 mg PO DAILY@1400 08/13/17 Furosemide [Lasix 40 mg Tablet] 120 mg PO QAM 08/13/17 Gemfibrozil [Lopid 600 mg Tablet] 600 mg PO BID 08/13/17 Hydralazine HCl 100 mg PO Q8 08/13/17 Insulin Glargine,Hum.rec.anlog [Lantus Solostar] 6 unit SQ QAM 08/13/17 Insulin Lispro [Humalog Insulin 100 Unit/1 ml 3 ml Vial] 1 unit INJ TID Levothyroxine Sodium [Synthroid] 125 mcg PO DAILY 08/13/17 Magnesium Oxide [Mag-Ox 400 mg Tablet] 400 mg PO DAILY 08/13/17 Omeprazole 10 mg PO DAILY 08/13/17 Tramadol HCl [Ultram 50 mg Tablet] 50 mg PO Q12 08/13/17 Valsartan [Diovan] 320 mg PO DAILY 08/13/17 Allergies/Adverse Reactions: adhesive tape [Adhesive Tape] Allergy (Unknown, Verified 08/12/17 18:48) iodine [Iodine] Allergy (Unknown, Verified 08/12/17 18:48) Penicillins Allergy (Unknown, Verified 08/12/17 18:48) Shellfish * [Shellfish] Allergy (Unknown, Verified 08/12/17 18:48) Sulfa (Sulfonamide Antibiotics) Allergy (Unknown, Verified 08/12/17 18:48) Review of Systems Constitutional: PRESENT: weight gain. ABSENT: chills, fever(s), weakness Nose, Mouth, and Throat: ABSENT: headache(s) Cardiovascular: PRESENT: dyspnea on exertion, edema, orthropnea. ABSENT: chest pain, palpitations Respiratory: PRESENT: cough, dyspnea. ABSENT: sputum Gastrointestinal: ABSENT: abdominal pain, constipation, diarrhea, nausea, vomiting Genitourinary: ABSENT: difficulty urinating, dysuria Musculoskeletal: ABSENT: muscle weakness Neurological: ABSENT: dizziness, weakness Physical Exam Vital Signs: Temp Pulse Resp BP Pulse Ox 98.7 F 76 21 H 187/67 H 99 08/13/17 09:45 08/12/17 18:12 08/13/17 12:31 08/13/17 12:31 08/13/17 12:31 Intake & Output 08/12/17 08/13/17 08/14/17 06:59 06:59 06:59 Output Total 975 Balance -975 Weight 72.575 kg General appearance: PRESENT: no acute distress, well-developed, well-nourished Mouth exam: PRESENT: moist, neck supple Neck exam: PRESENT: full ROM, JVD Respiratory exam: PRESENT: crackles, rales, rhonchi. ABSENT: accessory muscle use, clear to auscultation darcy, wheezes Cardiovascular exam: PRESENT: RRR, +S1, +S2 GI/Abdominal exam: PRESENT: soft. ABSENT: ascites, tenderness Extremities exam: PRESENT: pedal edema - 3+. ABSENT: tenderness Musculoskeletal exam: ABSENT: normal inspection, tenderness Neurological exam: PRESENT: alert, awake, oriented to person, oriented to place , oriented to time, oriented to situation Psychiatric exam: PRESENT: appropriate affect, normal mood Skin exam: PRESENT: dry, intact, warm. ABSENT: cyanosis Results Laboratory Results: 08/13/17 05:55 08/12/17 08/13/17 08/13/17 21:10 05:55 05:55 Retic Count (auto) 1.72 Absolute Retic 0.052 Carbonic Acid HCO3/H2CO3 Ratio ABG pH ABG pCO2 ABG pO2 ABG HCO3 ABG O2 Saturation ABG Base Excess FiO2 Sodium 143.2 Potassium 4.4 Chloride 112 H Carbon Dioxide 16 L Anion Gap 15 BUN 62 H Creatinine 5.06 H Est GFR ( Amer) 10 L Est GFR (Non-Af Amer) 8 L Glucose 71 L Calcium 10.1 Phosphorus 5.5 H Magnesium 2.0 Iron 29.3 L TIBC 234 L % Saturation 13 Ferritin 184.00 Vitamin B12 684.0 TSH Free T4 Urine Color YELLOW Urine Appearance CLEAR Urine pH 6.0 Ur Specific [place] 1.011 Urine Protein >=500 H Urine Glucose (UA) 50 H Urine Ketones NEGATIVE Urine Blood NEGATIVE Urine Nitrite NEGATIVE Ur Leukocyte Esterase NEGATIVE Urine WBC (Auto) 4 Urine RBC (Auto) 3 08/13/17 08/13/17 05:55 06:03 Retic Count (auto) Absolute Retic Carbonic Acid 0.97 L HCO3/H2CO3 Ratio 18:1 ABG pH 7.36 ABG pCO2 32.3 L ABG pO2 159.2 H ABG HCO3 17.8 L ABG O2 Saturation 99.0 H ABG Base Excess -6.6 FiO2 35% Sodium Potassium Chloride Carbon Dioxide Anion Gap BUN Creatinine Est GFR ( Amer) Est GFR (Non-Af Amer) Glucose Calcium Phosphorus Magnesium Iron TIBC % Saturation Ferritin Vitamin B12 TSH 4.27 Free T4 2.89 H Urine Color Urine Appearance Urine pH Ur Specific [place] Urine Protein Urine Glucose (UA) Urine Ketones Urine Blood Urine Nitrite Ur Leukocyte Esterase Urine WBC (Auto) Urine RBC (Auto) 08/13/17 05:55 Troponin I 0.017 Impressions: Chest X-Ray 08/13/17 00:00 IMPRESSION: 1. No acute pulmonary process identified. Stable appearance of the chest. Assessment & Plan - Diagnosis (1) Fluid overload Qualifiers: Hypervolemia type: unspecified Qualified Code(s): E87.70 - Fluid overload, unspecified Is this a current diagnosis for this admission?: Yes Plan: currently fluid overloaded, chest x-ray shows minor congestion but does not show blatant pulmonary edema. Legs show 2 to 3+ pitting edema. Will increase lasix to 40mg IV q8. Recommend keeping the luther catheter in to keep track of urine out put. If urine out put does not increase she may need small IV lasix infusion. Recommend also getting an echo to check EF. (2) CKD (chronic kidney disease) stage 5, GFR less than 15 ml/min Plan: creatinine baseline is the low 4s. Most likely elevated right now due to the effects of the fluid overload. Family and patient due not want to do dialysis. Also due to the patient's age and frailty she would not make for a great candidate. (3) Anemia in CKD (chronic kidney disease) Plan: Recently received a procit shot of 20,000 units on 08/10/17. At the time her hemoglobin was 8.8. Once more fluid is removed I expect her hemoglobin to be higher due to no longer being diluted. (4) Hypertension Qualifiers: Hypertension type: essential hypertension Qualified Code(s): I10 - Essential (primary) hypertension Is this a current diagnosis for this admission?: Yes Plan: Currently maxed out on 3 bp medications. Most likely bp is also being elevated by the amount of fluid that is on. As fluid is removed her bp should start to decrease. Ordering renal u/s with doppler to rule out renal artery stenosis (5) Diabetes mellitus Qualifiers: Diabetes mellitus type: type 2 Diabetes mellitus complication detail: with chronic kidney disease Chronic kidney disease stage: stage 5, not on chronic dialysis Is this a current diagnosis for this admission?: Yes Plan: patients family requested that she be put on her normal lantus 6 units in the am. She is set up to receive that tomorrow morning. Ordering a dose for today to be given when I saw her in the ER. (6) Hypothyroidism Qualifiers: Hypothyroidism type: acquired Qualified Code(s): E03.9 - Hypothyroidism, unspecified Is this a current diagnosis for this admission?: Yes
[2017-08-13] MEDS: TRAMADOL HCL 50 MG TABLET PO SCH (21:30)
[2017-08-14 04:30] LABS: ANION GAP 13 (5-19); BLOOD UREA NITROGEN 67 mg/dL (7-20); CALCIUM 9.1 mg/dL (8.4-10.2); CARBON DIOXIDE 18 mmol/L (22-30); CHLORIDE 111 mmol/L (98-107); GLUCOSE 83 mg/dL (75-110); MAGNESIUM 1.9 mg/dL (1.6-2.3); PHOSPHORUS 5.4 mg/dL (2.5-4.5); SODIUM 141.8 mmol/L (137-145)
[2017-08-14] MEDS: LANSOPRAZOLE 15 MG TAB.RAP.DR PO SCH (05:14)
[2017-08-14] MEDS: LEVOTHYROXINE SODIUM 0.025 MG TABLET PO SCH (05:14)
[2017-08-14] MEDS: LEVOTHYROXINE SODIUM 0.1 MG TABLET PO SCH (05:14)
[2017-08-14] MEDS: FUROSEMIDE INJ/PF 40 MG/4 ML SDV IV SCH ×3 (05:14→21:28)
[2017-08-14] MEDS: NITROGLYCERIN 2% OINTMENT 1 GM PACKET TP SCH ×4 (05:14→23:21)
[2017-08-14] MEDS: INSULIN GLARGINE,HUM.REC.ANLOG 300 UNIT/3 ML INSULN.PEN SUBCUT SCH ×2 (08:14→08:26)
--- NOTE | 2017-08-14 08:28 | RADIOLOGY REPORT (SQ) ---
EXAM DESCRIPTION: U/S RETROPERITON (RENAL/AORTA) COMPLETED DATE/TIME: 08/14/2017 7:24 am REASON FOR STUDY: Uncontrolled hypertension; w/ doppler also COMPARISON: None. TECHNIQUE: Dynamic and static grayscale images acquired of the kidneys and bladder and recorded on P ACS. Additional selected color Doppler and spectral images recorded. LIMITATIONS: None. FINDINGS: RIGHT KIDNEY: 9.7 cm. Increased cortical echogenicity. No solid or suspicious masses. No hydronephrosis. No calcifications. LEFT KIDNEY: 9.4 cm. Increased cortical echogenicity. Multiple cysts the largest about 2.9 cm. N o solid or suspicious masses. No hydronephrosis. No calcifications. BLADDER: No masses. OTHER: No other significant finding. IMPRESSION: CHRONIC MEDICAL RENAL DISEASE. NO HYDRONEPHROSIS. TECHNICAL DOCUMENTATION: JOB ID: [id number] [employer]- All Rights Reserved
--- NOTE | 2017-08-14 08:31 | RADIOLOGY REPORT (SQ) ---
EXAM DESCRIPTION: U/S LTD DUPLEX ART/CASPER FLOW COMPLETED DATE/TIME: 08/14/2017 7:24 am REASON FOR STUDY: UNCONTROLLED HTN COMPARISON: None. TECHNIQUE: Realtime and static grayscale images acquired. Selected color Doppler, velocities and spe ctral images recorded. LIMITATIONS: Motion. Overlying bowel gas. FINDINGS: RIGHT KIDNEY: RENAL ARTERY VELOCITIES: 47 cm/sec. Segmental artery velocity 41 cm/sec. RENAL VEIN: Color doppler flow present, patent. VELOCITY RATIO: 0.7. Normal waveforms. KIDNEY: See separate report. LEFT KIDNEY: RENAL ARTERY VELOCITIES: 29 cm/sec. Segmental artery velocity 73 cm/sec. RENAL VEIN: Color doppler flow present, patent. VELOCITY RATIO: 0.4. Normal waveforms. KIDNEY: See separate report. BLADDER: See separate report. OTHER: No other significant finding. IMPRESSION: NO DOPPLER EVIDENCE OF HEMODYNAMICALLY SIGNIFICANT RENAL ARTERY STENOSIS. COMMENT: NORMAL RENAL ARTERY/AORTA VELOCITY RATIO IS LESS THAN OR EQUAL TO 3.5. TECHNICAL DOCUMENTATION: JOB ID: [id number] [employer]- All Rights Reserved
[2017-08-14] MEDS: CLONIDINE HCL 0.1 MG TABLET PO SCH ×3 (09:07→17:57)
[2017-08-14] MEDS: MAGNESIUM OXIDE 400 MG TABLET PO SCH (09:08)
[2017-08-14] MEDS: AMLODIPINE BESYLATE 10 MG TABLET PO SCH (09:08)
[2017-08-14] MEDS: HYDRALAZINE HCL 50 MG TABLET PO SCH ×3 (09:09→17:57)
[2017-08-14] MEDS: EZETIMIBE 10 MG TABLET PO SCH (09:09)
[2017-08-14] MEDS: CARVEDILOL 12.5 MG TABLET PO SCH ×2 (09:10→21:28)
[2017-08-14] MEDS: ALLOPURINOL 100 MG TABLET PO SCH (09:10)
[2017-08-14] MEDS: TRAMADOL HCL 50 MG TABLET PO SCH ×2 (09:10→21:28)
[2017-08-14] MEDS: METOLAZONE 2.5 MG TABLET PO SCH (09:15)
[2017-08-14] MEDS ORDERED: MAGNESIUM OXIDE 400 MG TABLET PO SCH (10:00)
[2017-08-14] MEDS ORDERED: EZETIMIBE 10 MG TABLET PO SCH ×2 (10:00)
[2017-08-14] MEDS ORDERED: ALBUTEROL SULFATE 0.083% NEB 2.5 MG/3 ML AMPUL NEB PRN (11:40)
--- NOTE | 2017-08-14 12:17 | XCELERA REPORT ---
[address] [address] Transthoracic Echocardiogram Report Name: ARSALAN COLLINS Age: 87 yrs Gender: Female : 1930 Patient Status: Inpatient Patient Location: [address] [place] [address] Study Date: 08/14/2017 10:12 AM Height: 63 in Weight: 159 lb BSA: 1.8 m2 Procedure: A complete two-dimensional transthoracic echocardiogram was performed (2D, M-mode, spectral and color flow Doppler). The study was technically adequate with some images being suboptimal in quality. 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 Cannot r/o vegetation. The left ventricular ejection fraction is normal. There is mild concentric left ventricular hypertrophy. Doppler measurements suggest pseudonormalized left ventricular relaxation, which is associated with grade II/IV or mild to moderate diastolic dysfunction Wall motion cannot be accurately commented on, but no definite regional wall motion abnormalities noted. The left ventricle is grossly normal size. The right ventricle appears to be hypertrophied The right ventricle is mildly dilated. There is a mild amount of mitral regurgitation There is no mitral valve stenosis. No aortic regurgitation is present. There is no aortic valve stenosis There is a trace to mild amount of tricuspid regurgitation There is mild pulmonary hypertension by echo Right ventricular systolic pressure is estimated to be elevated at 30- 40mmHg. The aortic root is not well visualized but is probably normal size. The inferior vena cava appeared normal and decreased > 50% with respiration (RAP 5-10 mmHg) There is no pericardial effusion. Consider JORDYN/ cardiac MRI/Cardiac CTA if clinically indicated for further evaluation of Findings MMode/2D Measurements & Calculations RVDd: 2.8 cm LVIDd: 4.2 cm FS: 30.6 % Ao root diam: 2.5 cm IVSd: 1.3 cm LVIDs: 2.9 cm EDV(Teich): 79.2 ml LVPWd: 1.3 cm ESV(Teich): 32.9 ml Ao root area: 5.1 cm2 EF(Teich): 58.5 % LA dimension: 4.5 cm Doppler Measurements & Calculations MV E max sabine: MV P1/2t max sabine: Ao V2 max: LV V1 max P.6 cm/sec 110.1 cm/sec 162.5 cm/sec 4.9 mmHg MV A max sabine: MV P1/2t: 97.2 msec Ao max PG: LV V1 max: 135.2 cm/sec 10.6 mmHg 110.4 cm/sec MV E/A: 0.81 MVA(P1/2t): 2.3 cm2 MV dec slope: 331.6 cm/sec2 PA V2 max: TR max sabine: 127.3 cm/sec 286.6 cm/sec PA max PG: TR max P.8 mmHg 6.5 mmHg Left Ventricle The left ventricle is grossly normal size. There is mild concentric left ventricular hypertrophy. The left ventricular ejection fraction is normal. Doppler measurements suggest pseudonormalized left ventricular relaxation, which is associated with grade II/IV or mild to moderate diastolic dysfunction. Wall motion cannot be accurately commented on, but no definite regional wall motion abnormalities noted. Right Ventricle The right ventricle is mildly dilated. The right ventricle appears to be hypertrophied. The right ventricular systolic function is normal. Atria The right atrium is normal in size. The left atrium is moderately dilated. Interarterial septum not well visualized and not well dopplered. Cannot comment on ASD/PFO presence. Mitral Valve The mitral valve leaflets appear thickened, but open well. 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 Cannot r/o vegetation. There is no mitral valve stenosis. There is a mild amount of mitral regurgitation. Aortic Valve The aortic valve opens well. There is no aortic valve stenosis. No aortic regurgitation is present. Tricuspid Valve The tricuspid valve is not well visualized, but is grossly normal. There is no tricuspid stenosis. There is a trace to mild amount of tricuspid regurgitation. There is mild pulmonary hypertension by echo. Right ventricular systolic pressure is estimated to be elevated at 30-40mmHg. Pulmonic Valve The pulmonic valve is not well visualized. Great Vessels The aortic root is not well visualized but is probably normal size. The inferior vena cava appeared normal and decreased > 50% with respiration (RAP 5-10 mmHg). Effusions There is no pericardial effusion. Incidental Findings Consider JORDYN if clinically indicated. : MONE DICKEY > Hailey Nova
[2017-08-14] MEDS ORDERED: METHYLPREDNISOLONE INJ 40 MG/1 ML SDV IV ONE (13:00)
--- NOTE | 2017-08-14 13:45 | PDOC PROGRESS REPORT ---
Subjective Progress Note for:: 08/14/17 Reason For Visit: Patient seen today .She is better regards her dyspnea and her edema also has improved some as per her daughter at the bedside. She has made good urine output. She looks depressed and thats affirmed by her daughter. She denies any chest pains, fever or chills. Physical Exam Vital Signs: Temp Pulse Resp BP Pulse Ox 98.1 F 72 17 136/49 H 96 08/14/17 11:32 08/14/17 11:32 08/14/17 11:32 08/14/17 11:32 08/14/17 11:32 Intake & Output 08/13/17 08/14/17 08/15/17 06:59 06:59 06:59 Intake Total 470 Output Total 975 Balance -505 Weight 72.575 kg 76.2 kg General appearance: PRESENT: no acute distress Respiratory exam: PRESENT: clear to auscultation darcy, crackles - -left lung, decreased breath sounds - - left. ABSENT: rales, rhonchi, stridor, tachypnea Cardiovascular exam: PRESENT: RRR, +S1, +S2 GI/Abdominal exam: PRESENT: normal bowel sounds, soft. ABSENT: ascites, organomegaly, tenderness Extremities exam: PRESENT: +1 edema Neurological exam: PRESENT: awake, oriented to person, oriented to place Psychiatric exam: PRESENT: depressed Skin exam: ABSENT: cyanosis, erythema, mottled Results Laboratory Results: 08/14/17 03:50 08/13/17 08/14/17 05:55 03:50 Sodium 141.8 Potassium 4.0 Chloride 111 H Carbon Dioxide 18 L Anion Gap 13 BUN 67 H Creatinine 5.24 H Est GFR ( Amer) 9 L Est GFR (Non-Af Amer) 8 L Glucose 83 Calcium 9.1 Phosphorus 5.4 H Magnesium 1.9 Transferrin 176 L 08/13/17 05:55 Troponin I 0.017 Impressions: Chest X-Ray 08/13/17 00:00 IMPRESSION: 1. No acute pulmonary process identified. Stable appearance of the chest. Renal Ultrasound 08/14/17 06:00 IMPRESSION: CHRONIC MEDICAL RENAL DISEASE. NO HYDRONEPHROSIS. Vascular Ultrasound 08/14/17 06:00 IMPRESSION: NO DOPPLER EVIDENCE OF HEMODYNAMICALLY SIGNIFICANT RENAL ARTERY STENOSIS. Assessment & Plan - Diagnosis (1) BRYANNA (acute kidney injury) Plan: Combination of early CHF /chest infection. See response to current management. i hav discussed on STAFF TECHNOLOGIST before and she has expressed a desire not to go on it. I had a breif discussion on that topic in front of her with her daughter who is going to talk about it with the rest of her siblings and confirm that. The daughter who is now at her bedside was a former application engineer and she agreed that she would not want her mom to go Dialysis given her age and co morbidities. No acute indication for HD now.I am off for the weekend and back on Thursday. (2) Acute bronchitis Plan: Clinical features indicative.No malini evidence of a pneumonia.Start Levoflox and adjust renally. (3) Anemia in CKD (chronic kidney disease) Plan: Monitor .She is on EPO at my office. She has had a shot this week. (4) CKD (chronic kidney disease) stage 5, GFR less than 15 ml/min Plan: Gradual worsening of her gfr over the last few months. (5) Dyspnea on exertion Plan: A combination of early CHF and chest infection. Management as out lined earlier. (6) Hypertension Qualifiers: Hypertension type: essential hypertension Qualified Code(s): I10 - Essential (primary) hypertension Is this a current diagnosis for this admission?: Yes Plan: Monitor.
[2017-08-14] MEDS ORDERED: VANCOMYCIN HCL 0 MG in DEXTROSE 5%-WATER 250 ML IV NR (14:15)
--- NOTE | 2017-08-14 14:15 | PDOC PROGRESS REPORT ---
Subjective Progress Note for:: 08/14/17 Subjective:: Breathing some better however she is having some cough which is for the most part nonproductive. Daughter admits this patient does have a history of asthma. There is no history of prior smoking Review of systems All organ systems evaluated and negative except as in subjective All significant laboratories and diagnostics have been reviewed Reason For Visit: HYPERVOLEMIA,END STAGE RENAL DISEASE Physical Exam Vital Signs: Temp Pulse Resp BP Pulse Ox 99.0 F 83 20 200/62 H 99 08/14/17 07:32 08/14/17 07:32 08/14/17 07:32 08/14/17 07:32 08/14/17 07:32 Intake & Output 08/13/17 08/14/17 08/15/17 06:59 06:59 06:59 Intake Total 470 Output Total 975 Balance -505 Weight 72.575 kg 76.2 kg General appearance: PRESENT: cooperative, obese Head exam: PRESENT: atraumatic, normocephalic Eye exam: PRESENT: EOMI, PERRLA Ear exam: PRESENT: normal external ear exam, TM's normal bilaterally Mouth exam: PRESENT: moist Neck exam: PRESENT: full ROM. ABSENT: JVD, lymphadenopathy, tenderness Respiratory exam: PRESENT: crackles, decreased breath sounds Cardiovascular exam: PRESENT: RRR. ABSENT: diastolic murmur, systolic murmur Vascular exam: PRESENT: normal capillary refill GI/Abdominal exam: PRESENT: normal bowel sounds, soft. ABSENT: tenderness Extremities exam: PRESENT: full ROM, other - 3+ pitting edema Musculoskeletal exam: PRESENT: ambulatory Neurological exam: PRESENT: alert, awake, oriented to person, oriented to place , oriented to time, oriented to situation, CN II-XII grossly intact Psychiatric exam: PRESENT: appropriate affect, normal mood Skin exam: PRESENT: intact, normal color Results Laboratory Results: 08/14/17 03:50 08/13/17 08/14/17 05:55 03:50 Sodium 141.8 Potassium 4.0 Chloride 111 H Carbon Dioxide 18 L Anion Gap 13 BUN 67 H Creatinine 5.24 H Est GFR ( Amer) 9 L Est GFR (Non-Af Amer) 8 L Glucose 83 Calcium 9.1 Phosphorus 5.4 H Magnesium 1.9 Transferrin 176 L 08/13/17 05:55 Troponin I 0.017 Impressions: Chest X-Ray 08/13/17 00:00 IMPRESSION: 1. No acute pulmonary process identified. Stable appearance of the chest. Renal Ultrasound 08/14/17 06:00 IMPRESSION: CHRONIC MEDICAL RENAL DISEASE. NO HYDRONEPHROSIS. Vascular Ultrasound 08/14/17 06:00 IMPRESSION: NO DOPPLER EVIDENCE OF HEMODYNAMICALLY SIGNIFICANT RENAL ARTERY STENOSIS. Assessment & Plan - Diagnosis (1) Fluid overload Qualifiers: Hypervolemia type: unspecified Qualified Code(s): E87.70 - Fluid overload, unspecified Is this a current diagnosis for this admission?: Yes Plan: We will continue present management. Echocardiogram results noted and demonstrate diastolic dysfunction (2) Hypertension Qualifiers: Hypertension type: essential hypertension Qualified Code(s): I10 - Essential (primary) hypertension Is this a current diagnosis for this admission?: Yes Plan: Continue Norvasc, Coreg, hydralazine and clonidine. (3) Hypothyroidism Qualifiers: Hypothyroidism type: acquired Qualified Code(s): E03.9 - Hypothyroidism, unspecified Is this a current diagnosis for this admission?: Yes Plan: Continue outpatient regimen (4) Macrocytic anemia Is this a current diagnosis for this admission?: Yes Plan: Stable (5) CKD (chronic kidney disease) stage 4, GFR 15-29 ml/min Is this a current diagnosis for this admission?: Yes Plan: Likely contributing to presentation. Being follow-up by Dr. Schmidt (6) Diabetes mellitus Qualifiers: Diabetes mellitus type: type 2 Diabetes mellitus complication detail: with chronic kidney disease Chronic kidney disease stage: stage 5, not on chronic dialysis Is this a current diagnosis for this admission?: Yes Plan: Hemoglobin A1c 4.5. Likely at this point time patient does not need any insulin supplementation. Family made aware. (7) Acute respiratory failure Qualifiers: Respiratory failure complication: unspecified whether with hypoxia or hypercapnia Qualified Code(s): J96.00 - Acute respiratory failure, unspecified whether with hypoxia or hypercapnia Is this a current diagnosis for this admission?: Yes Plan: Off bipap. Continue oxygen supplementation (8) Diastolic CHF Qualifiers: Heart failure chronicity: acute Qualified Code(s): I50.31 - Acute diastolic (congestive) heart failure Is this a current diagnosis for this admission?: Yes Plan: Continue diuresis and blood pressure management (9) Chest congestion Is this a current diagnosis for this admission?: Yes Plan: Can be multifactorial. Will place on DuoNeb's, IV steroids, Tamiflu and is my understanding that Dr. Schmidt is planning to put her on some antibiotic - Time Time Spent with patient: 15-24 minutes Medications reviewed and adjusted accordingly: Yes Anticipated discharge: Home with Homehealth Within: within 72 hours - Inpatient Certification Based on my medical assessment, after consideration of the patient's comorbidities, presenting symptoms, or acuity I expect that the services needed warrant INPATIENT care.: Yes I certify that my determination is in accordance with my understanding of Medicare's requirements for reasonable and necessary INPATIENT services [42 CFR 412.3e].: Yes Medical Necessity: Need Close Monitoring Due to Risk of Patient Decompensation, Need for Nebulizer Therapy and Monitoring of Response
[2017-08-14] MEDS ORDERED: LEVOFLOXACIN 500 MG TABLET PO ONE (14:30)
[2017-08-14] MEDS: IPRATROPIUM/ALBUTEROL 0.5-2.5 MG/3 ML AMPUL NEB SCH ×2 (14:37→20:21)
[2017-08-14] MEDS: OSELTAMIVIR PHOSPHATE 75 MG CAPSULE PO SCH (17:59)
[2017-08-14] MEDS ORDERED: VANCOMYCIN HCL 750 MG in DEXTROSE 5%-WATER 250 ML IV SCH (18:00)
[2017-08-14] MEDS ORDERED: MAG HYDROX/AL HYDROX/SIMETH SUSP 30 ML UDCUP PO PRN (21:10)
[2017-08-14] MEDS ORDERED: MAG HYDROX/AL HYDROX/SIMETH SUSP 30 ML UDCUP PO ONE (21:10)
[2017-08-14] MEDS: METHYLPREDNISOLONE INJ 40 MG/1 ML SDV IV SCH (21:28)
[2017-08-15] MEDS: FUROSEMIDE INJ/PF 40 MG/4 ML SDV IV SCH (05:20)
[2017-08-15] MEDS: LANSOPRAZOLE 15 MG TAB.RAP.DR PO SCH (05:20)
[2017-08-15] MEDS: LEVOTHYROXINE SODIUM 0.1 MG TABLET PO SCH (05:20)
[2017-08-15] MEDS: NITROGLYCERIN 2% OINTMENT 1 GM PACKET TP SCH (05:21)
[2017-08-15] MEDS: LEVOTHYROXINE SODIUM 0.025 MG TABLET PO SCH (05:21)
[2017-08-15 05:53] LABS: ANION GAP 12 (5-19); BLOOD UREA NITROGEN 75 mg/dL (7-20); CALCIUM 9.5 mg/dL (8.4-10.2); CARBON DIOXIDE 19 mmol/L (22-30); CHLORIDE 106 mmol/L (98-107); GLUCOSE 226 mg/dL (75-110); POTASSIUM 4.1 mmol/L (3.6-5.0); SODIUM 137.2 mmol/L (137-145)
[2017-08-15] MEDS: IPRATROPIUM/ALBUTEROL 0.5-2.5 MG/3 ML AMPUL NEB SCH ×3 (07:40→20:56)
[2017-08-15] MEDS: INSULIN GLARGINE,HUM.REC.ANLOG 300 UNIT/3 ML INSULN.PEN SUBCUT SCH (08:12)
[2017-08-15] MEDS ORDERED: LEVOFLOXACIN 250 MG TABLET PO SCH (10:00)
[2017-08-15] MEDS: TRAMADOL HCL 50 MG TABLET PO SCH ×2 (10:08→21:32)
[2017-08-15] MEDS: AMLODIPINE BESYLATE 10 MG TABLET PO SCH (10:08)
[2017-08-15] MEDS: CLONIDINE HCL 0.1 MG TABLET PO SCH ×3 (10:08→17:46)
[2017-08-15] MEDS: CARVEDILOL 12.5 MG TABLET PO SCH ×2 (10:08→21:32)
[2017-08-15] MEDS: OSELTAMIVIR PHOSPHATE 75 MG CAPSULE PO SCH ×2 (10:08→17:46)
[2017-08-15] MEDS: MAGNESIUM OXIDE 400 MG TABLET PO SCH (10:09)
[2017-08-15] MEDS: METOLAZONE 2.5 MG TABLET PO SCH (10:09)
[2017-08-15] MEDS: METHYLPREDNISOLONE INJ 40 MG/1 ML SDV IV SCH ×3 (10:10→23:45)
[2017-08-15] MEDS: ALLOPURINOL 100 MG TABLET PO SCH (10:10)
[2017-08-15] MEDS: HYDRALAZINE HCL 50 MG TABLET PO SCH ×3 (10:10→17:46)
--- NOTE | 2017-08-15 12:01 | PDOC PROGRESS REPORT ---
Subjective Progress Note for:: 08/15/17 Subjective:: Patient refers that her breathing is better Review of systems All organ systems evaluated and negative except as in subjective All significant laboratories and diagnostics have been reviewed Reason For Visit: VOLUME OVERLOAD Physical Exam Vital Signs: Temp Pulse Resp BP Pulse Ox 98.5 F 80 15 177/74 H 96 08/15/17 03:44 08/15/17 03:44 08/15/17 03:44 08/15/17 03:44 08/15/17 03:44 Intake & Output 08/14/17 08/15/17 08/16/17 06:59 06:59 06:59 Intake Total 470 394 Output Total 975 650 Balance -505 -256 Weight 76.2 kg General appearance: PRESENT: no acute distress, cooperative, obese Head exam: PRESENT: atraumatic, normocephalic Eye exam: PRESENT: conjunctiva pink, EOMI, PERRLA Ear exam: PRESENT: normal external ear exam Mouth exam: PRESENT: moist Neck exam: PRESENT: full ROM. ABSENT: JVD, lymphadenopathy, tenderness Respiratory exam: PRESENT: other - Adequate movement of air with soft basilar crackles Cardiovascular exam: PRESENT: diastolic murmur, RRR. ABSENT: systolic murmur Vascular exam: PRESENT: normal capillary refill GI/Abdominal exam: PRESENT: normal bowel sounds, soft. ABSENT: tenderness Extremities exam: PRESENT: full ROM, +2 edema Neurological exam: PRESENT: alert, awake, oriented to person, oriented to place , oriented to time, oriented to situation Psychiatric exam: PRESENT: appropriate affect, normal mood Skin exam: PRESENT: intact, normal color Results Laboratory Results: 08/15/17 04:27 08/13/17 08/15/17 05:55 04:27 Sodium 137.2 Potassium 4.1 Chloride 106 Carbon Dioxide 19 L Anion Gap 12 BUN 75 H Creatinine 5.38 H Est GFR ( Amer) 9 L Est GFR (Non-Af Amer) 7 L Glucose 226 H Calcium 9.5 Phosphorus 6.0 H Magnesium 2.0 Transferrin 176 L 08/13/17 05:55 Troponin I 0.017 Impressions: Chest X-Ray 08/13/17 00:00 IMPRESSION: 1. No acute pulmonary process identified. Stable appearance of the chest. Renal Ultrasound 08/14/17 06:00 IMPRESSION: CHRONIC MEDICAL RENAL DISEASE. NO HYDRONEPHROSIS. Vascular Ultrasound 08/14/17 06:00 IMPRESSION: NO DOPPLER EVIDENCE OF HEMODYNAMICALLY SIGNIFICANT RENAL ARTERY STENOSIS. Assessment & Plan - Diagnosis (1) Hypertension Qualifiers: Hypertension type: essential hypertension Qualified Code(s): I10 - Essential (primary) hypertension Is this a current diagnosis for this admission?: Yes Plan: Continue current management (2) Hypothyroidism Qualifiers: Hypothyroidism type: acquired Qualified Code(s): E03.9 - Hypothyroidism, unspecified Is this a current diagnosis for this admission?: Yes Plan: Continue outpatient regimen (3) Macrocytic anemia Is this a current diagnosis for this admission?: Yes Plan: Stable (4) CKD (chronic kidney disease) stage 4, GFR 15-29 ml/min Is this a current diagnosis for this admission?: Yes Plan: Likely contributing to presentation. Being follow-up by Dr. Schmidt. Carlos (5) Diabetes mellitus Qualifiers: Diabetes mellitus type: type 2 Diabetes mellitus complication detail: with chronic kidney disease Chronic kidney disease stage: stage 5, not on chronic dialysis Is this a current diagnosis for this admission?: Yes Plan: Hemoglobin A1c 4.5. Likely at this point time patient does not need any insulin supplementation. Family made aware. Became uncontrollable because of adding IV steroids. Will cover with Humalog sliding scale (6) Acute respiratory failure Qualifiers: Respiratory failure complication: unspecified whether with hypoxia or hypercapnia Qualified Code(s): J96.00 - Acute respiratory failure, unspecified whether with hypoxia or hypercapnia Is this a current diagnosis for this admission?: Yes Plan: Off bipap. Continue oxygen supplementation and will wean off as tolerated (7) Diastolic CHF Qualifiers: Heart failure chronicity: acute on chronic Qualified Code(s): I50.33 - Acute on chronic diastolic (congestive) heart failure Is this a current diagnosis for this admission?: Yes Plan: Will decrease IV Lasix. Continue blood pressure control (8) Chest congestion Is this a current diagnosis for this admission?: Yes Plan: Can be multifactorial. Decrease IV steroids and continue duo nebs. Continue Tamiflu. Will discontinue Levaquin (9) Papillary fibroelastoma of heart Is this a current diagnosis for this admission?: Yes Plan: Patient was started on IV vancomycin until able to rule out endocarditis. Family informed - Time Time Spent with patient: 15-24 minutes Medications reviewed and adjusted accordingly: Yes Anticipated discharge: Home with Homehealth Within: within 72 hours - Inpatient Certification Based on my medical assessment, after consideration of the patient's comorbidities, presenting symptoms, or acuity I expect that the services needed warrant INPATIENT care.: Yes I certify that my determination is in accordance with my understanding of Medicare's requirements for reasonable and necessary INPATIENT services [42 CFR 412.3e].: Yes Medical Necessity: Need For Continuous Telemetry Monitoring, Need for IV Antibiotics - IV diuresis
[2017-08-15] MEDS ORDERED: OSELTAMIVIR PHOSPHATE 75 MG CAPSULE ONE (17:20)
[2017-08-15] MEDS: INSULIN LISPRO 100 UNIT/ML 3 ML VIAL SUBCUT PRN ×2 (17:46→21:32)
[2017-08-15] MEDS ORDERED: FUROSEMIDE INJ/PF 40 MG/4 ML SDV IV SCH (22:00)
[2017-08-16] MEDS: LEVOTHYROXINE SODIUM 0.1 MG TABLET PO SCH (05:08)
[2017-08-16] MEDS: LANSOPRAZOLE 15 MG TAB.RAP.DR PO SCH (05:08)
[2017-08-16] MEDS: LEVOTHYROXINE SODIUM 0.025 MG TABLET PO SCH (05:08)
[2017-08-16] MEDS: IPRATROPIUM/ALBUTEROL 0.5-2.5 MG/3 ML AMPUL NEB SCH ×3 (07:54→19:27)
[2017-08-16] MEDS ORDERED: BISACODYL 10 MG SUPP.RECT PR ONE (08:24)
[2017-08-16] MEDS: INSULIN LISPRO 100 UNIT/ML 3 ML VIAL SUBCUT PRN ×4 (08:52→22:39)
[2017-08-16] MEDS: INSULIN GLARGINE,HUM.REC.ANLOG 300 UNIT/3 ML INSULN.PEN SUBCUT SCH (08:52)
[2017-08-16] MEDS ORDERED: OSELTAMIVIR PHOSPHATE 75 MG CAPSULE PO SCH (10:00)
[2017-08-16] MEDS ORDERED: FUROSEMIDE INJ/PF 40 MG/4 ML SDV IV SCH (10:00)
[2017-08-16] MEDS: POLYETHYLENE GLYCOL 3350 POWDER 17 GM/1 PACKET PO SCH (10:28)
[2017-08-16] MEDS: CARVEDILOL 12.5 MG TABLET PO SCH ×2 (10:29→21:13)
[2017-08-16] MEDS: CLONIDINE HCL 0.1 MG TABLET PO SCH ×3 (10:29→17:35)
[2017-08-16] MEDS: ALLOPURINOL 100 MG TABLET PO SCH (10:29)
[2017-08-16] MEDS: AMLODIPINE BESYLATE 10 MG TABLET PO SCH (10:30)
[2017-08-16] MEDS: ISOSORBIDE MONONITRATE 60 MG TAB.ER.24H PO SCH (10:30)
[2017-08-16] MEDS: TRAMADOL HCL 50 MG TABLET PO SCH ×2 (10:30→21:13)
[2017-08-16] MEDS: HYDRALAZINE HCL 50 MG TABLET PO SCH ×3 (10:30→17:36)
[2017-08-16] MEDS: MAGNESIUM OXIDE 400 MG TABLET PO SCH (10:31)
--- NOTE | 2017-08-16 10:46 | PDOC PROGRESS REPORT ---
Subjective Progress Note for:: 08/16/17 Subjective:: Breathing is better. Patient and daughter complaining of constipation. Patient also has problems sleeping but that is a chronic problem Review of systems All organ systems evaluated and negative except as in subjective All significant laboratories and diagnostics have been reviewed Reason For Visit: VOLUME OVERLOAD Physical Exam Vital Signs: Temp Pulse Resp BP Pulse Ox 98.4 F 73 18 162/58 H 97 08/16/17 00:06 08/16/17 07:00 08/16/17 00:06 08/16/17 00:06 08/16/17 00:06 Intake & Output 08/15/17 08/16/17 08/17/17 06:59 06:59 06:59 Intake Total 394 2492 Output Total 650 1600 Balance -256 892 Weight 78.8 kg General appearance: PRESENT: cooperative, obese Head exam: PRESENT: atraumatic, normocephalic Eye exam: PRESENT: conjunctiva pink, EOMI, PERRLA Ear exam: PRESENT: normal external ear exam Neck exam: PRESENT: full ROM. ABSENT: JVD, lymphadenopathy, tenderness Respiratory exam: PRESENT: other - Adequate movement of air with very mild basilar crackles Cardiovascular exam: PRESENT: RRR. ABSENT: diastolic murmur, systolic murmur Vascular exam: PRESENT: normal capillary refill GI/Abdominal exam: PRESENT: normal bowel sounds, soft. ABSENT: tenderness Extremities exam: PRESENT: full ROM, +2 edema Musculoskeletal exam: PRESENT: ambulatory Neurological exam: PRESENT: alert, awake, oriented to person, oriented to place , oriented to time, oriented to situation, CN II-XII grossly intact Psychiatric exam: PRESENT: appropriate affect, normal mood Skin exam: PRESENT: intact, normal color Results Laboratory Results: 08/15/17 04:27 08/13/17 05:55 Troponin I 0.017 Impressions: Chest X-Ray 08/13/17 00:00 IMPRESSION: 1. No acute pulmonary process identified. Stable appearance of the chest. Renal Ultrasound 08/14/17 06:00 IMPRESSION: CHRONIC MEDICAL RENAL DISEASE. NO HYDRONEPHROSIS. Vascular Ultrasound 08/14/17 06:00 IMPRESSION: NO DOPPLER EVIDENCE OF HEMODYNAMICALLY SIGNIFICANT RENAL ARTERY STENOSIS. Assessment & Plan - Diagnosis (1) Hypertension Qualifiers: Hypertension type: essential hypertension Qualified Code(s): I10 - Essential (primary) hypertension Is this a current diagnosis for this admission?: Yes Plan: Continue current management (2) Hypothyroidism Qualifiers: Hypothyroidism type: acquired Qualified Code(s): E03.9 - Hypothyroidism, unspecified Is this a current diagnosis for this admission?: Yes Plan: Continue outpatient regimen (3) Macrocytic anemia Is this a current diagnosis for this admission?: Yes Plan: Stable (4) CKD (chronic kidney disease) stage 4, GFR 15-29 ml/min Is this a current diagnosis for this admission?: Yes Plan: Likely contributing to presentation. Being follow-up by Dr. Schmidt. Carlos (5) Diabetes mellitus Qualifiers: Diabetes mellitus type: type 2 Diabetes mellitus complication detail: with chronic kidney disease Chronic kidney disease stage: stage 5, not on chronic dialysis Is this a current diagnosis for this admission?: Yes Plan: Uncontrolled because of use of steroids. Continue present management. Expect to improve since will discontinue stroids IV (6) Acute respiratory failure Qualifiers: Respiratory failure complication: unspecified whether with hypoxia or hypercapnia Qualified Code(s): J96.00 - Acute respiratory failure, unspecified whether with hypoxia or hypercapnia Is this a current diagnosis for this admission?: Yes Plan: Off bipap. Continue oxygen supplementation and will wean off as tolerated (7) Diastolic CHF Qualifiers: Heart failure chronicity: acute on chronic Qualified Code(s): I50.33 - Acute on chronic diastolic (congestive) heart failure Is this a current diagnosis for this admission?: Yes Plan: To discontinue Lasix IV and restart outpatient regimen. Continue blood pressure control. I am strongly concerned about patient being both on Coreg and clonidine which depressed AV. Patient with advanced age and AV node may be very susceptible to bradycardia (8) Chest congestion Is this a current diagnosis for this admission?: Yes Plan: Can be multifactorial. Resolved. Continue nebulizer treatments. (9) Papillary fibroelastoma of heart Is this a current diagnosis for this admission?: Yes Plan: Patient was started on IV vancomycin until able to rule out endocarditis. Family informed. Blood culture so far negative x 24 hours. - Time Medications reviewed and adjusted accordingly: Yes Anticipated discharge: Home with Homehealth Within: within 48 hours - Inpatient Certification Based on my medical assessment, after consideration of the patient's comorbidities, presenting symptoms, or acuity I expect that the services needed warrant INPATIENT care.: Yes I certify that my determination is in accordance with my understanding of Medicare's requirements for reasonable and necessary INPATIENT services [42 CFR 412.3e].: Yes Medical Necessity: Need Close Monitoring Due to Risk of Patient Decompensation, Need for Nebulizer Therapy and Monitoring of Response
[2017-08-16] MEDS: OSELTAMIVIR PHOSPHATE 6 MG/1 ML SUSP 60 ML PO SCH (12:38)
[2017-08-16] MEDS ORDERED: FUROSEMIDE 40 MG TABLET PO SCH (14:00)
[2017-08-16] MEDS: BUDESONIDE NEB 0.5 MG/2 ML AMPUL NEB SCH (19:27)
[2017-08-17 04:55] LABS: ABSOLUTE LYMPHOCYTES (AUTO) 0.8 10^3/uL (0.5-4.7); ABSOLUTE MONOCYTES (AUTO) 0.6 10^3/uL (0.1-1.4); ABSOLUTE NEUT (AUTO) 7.5 10^3/uL (1.7-8.2); HEMATOCRIT 24.3 % (36.0-47.0); LYMPHOCYTES % (AUTO) 8.9 % (13-45); MEAN CORPUSCULAR HEMOGLOBIN 32.7 pg (27.0-33.4); MEAN CORPUSCULAR HGB CONC 33.1 g/dL (32.0-36.0); MEAN CORPUSCULAR VOLUME 99 fl (80-97); MONOCYTES % (AUTO) 6.3 % (3-13); PLATELET COUNT 265 10^3/uL (150-450); RED BLOOD COUNT 2.46 10^6/uL (3.72-5.28); RED CELL DISTRIBUTION WIDTH 15.9 % (11.5-14.0); SEGMENTED NEUTROPHILS % (AUTO) 84.8 % (42-78); TOTAL CELLS COUNTED % (AUTO) 100 %; WHITE BLOOD COUNT 8.9 10^3/uL (4.0-10.5)
[2017-08-17 05:19] LABS: ALANINE AMINOTRANSFERASE 13 U/L (9-52); ALBUMIN 2.8 g/dL (3.5-5.0); ALKALINE PHOSPHATASE 99 U/L (38-126); ANION GAP 15 (5-19); ASPARTATE AMINO TRANSFERASE 16 U/L (14-36); BLOOD UREA NITROGEN 104 mg/dL (7-20); CALCIUM 9.2 mg/dL (8.4-10.2); CARBON DIOXIDE 19 mmol/L (22-30); CHLORIDE 104 mmol/L (98-107); GLUCOSE 173 mg/dL (75-110); PHOSPHORUS 6.1 mg/dL (2.5-4.5); POTASSIUM 3.6 mmol/L (3.6-5.0); SODIUM 137.7 mmol/L (137-145); TOTAL PROTEIN 4.8 g/dL (6.3-8.2); URIC ACID 6.2 mg/dL (2.5-7.5)
[2017-08-17 05:28] LABS: BILIRUBIN,TOTAL < 0.1 mg/dL (0.2-1.3)
[2017-08-17] MEDS: LEVOTHYROXINE SODIUM 0.025 MG TABLET PO SCH (05:50)
[2017-08-17] MEDS: LEVOTHYROXINE SODIUM 0.1 MG TABLET PO SCH (05:50)
[2017-08-17] MEDS: LANSOPRAZOLE 15 MG TAB.RAP.DR PO SCH (05:50)
[2017-08-17] MEDS: BUDESONIDE NEB 0.5 MG/2 ML AMPUL NEB SCH (07:41)
[2017-08-17] MEDS: IPRATROPIUM/ALBUTEROL 0.5-2.5 MG/3 ML AMPUL NEB SCH (07:42)
[2017-08-17] MEDS ORDERED: FUROSEMIDE 40 MG TABLET PO SCH (08:00)
[2017-08-17] MEDS ORDERED: BISACODYL 10 MG SUPP.RECT PR ONE (09:00)
[2017-08-17] MEDS ORDERED: EZETIMIBE 10 MG TABLET PO SCH (10:00)
[2017-08-17] MEDS: INSULIN GLARGINE,HUM.REC.ANLOG 300 UNIT/3 ML INSULN.PEN SUBCUT SCH (10:17)
[2017-08-17] MEDS: TRAMADOL HCL 50 MG TABLET PO SCH ×2 (10:18→22:18)
[2017-08-17] MEDS: AMLODIPINE BESYLATE 10 MG TABLET PO SCH (10:18)
[2017-08-17] MEDS: ISOSORBIDE MONONITRATE 60 MG TAB.ER.24H PO SCH (10:19)
[2017-08-17] MEDS: EZETIMIBE 10 MG TABLET PO SCH (10:19)
[2017-08-17] MEDS: HYDRALAZINE HCL 50 MG TABLET PO SCH ×3 (10:20→17:00)
[2017-08-17] MEDS: ALLOPURINOL 100 MG TABLET PO SCH (10:20)
[2017-08-17] MEDS: CARVEDILOL 12.5 MG TABLET PO SCH ×2 (10:20→22:19)
[2017-08-17] MEDS: MAGNESIUM OXIDE 400 MG TABLET PO SCH (10:20)
[2017-08-17] MEDS: CLONIDINE HCL 0.1 MG TABLET PO SCH ×3 (10:20→17:00)
[2017-08-17] MEDS: POLYETHYLENE GLYCOL 3350 POWDER 17 GM/1 PACKET PO SCH (10:57)
[2017-08-17] MEDS: OSELTAMIVIR PHOSPHATE 6 MG/1 ML SUSP 60 ML PO SCH (11:27)
[2017-08-17] MEDS: INSULIN LISPRO 100 UNIT/ML 3 ML VIAL SUBCUT PRN ×3 (12:20→22:54)
[2017-08-17] MEDS ORDERED: 1/2 NORMAL SALINE 1,000 ML IV PRN (12:35)
[2017-08-17] MEDS ORDERED: IPRATROPIUM/ALBUTEROL 0.5-2.5 MG/3 ML AMPUL NEB PRN (12:51)
--- NOTE | 2017-08-17 13:11 | PDOC PROGRESS REPORT ---
Subjective Progress Note for:: 08/17/17 Subjective:: Breathing is okay. Did not move her bowels. For some unknown reason Dulcolax suppository was ordered yesterday and did not go through Review of systems All organ systems evaluated and negative except as in subjective All significant laboratories and diagnostics have been reviewed Reason For Visit: VOLUME OVERLOAD Physical Exam Vital Signs: Temp Pulse Resp BP Pulse Ox 98.3 F 65 16 149/46 H 98 08/16/17 23:43 08/17/17 02:00 08/16/17 23:43 08/16/17 23:43 08/16/17 23:43 Intake & Output 08/16/17 08/17/17 08/18/17 06:59 06:59 06:59 Intake Total 2492 1505 Output Total 1600 Balance 892 1505 Weight 78.8 kg 77.4 kg General appearance: PRESENT: cooperative, obese Head exam: PRESENT: atraumatic, normocephalic Eye exam: PRESENT: conjunctiva pink, EOMI, PERRLA Ear exam: PRESENT: normal external ear exam, TM's normal bilaterally Mouth exam: PRESENT: moist Neck exam: PRESENT: full ROM. ABSENT: JVD, lymphadenopathy, tenderness Respiratory exam: PRESENT: clear to auscultation darcy Cardiovascular exam: PRESENT: RRR. ABSENT: diastolic murmur, systolic murmur Extremities exam: PRESENT: clubbing, +2 edema. ABSENT: full ROM Musculoskeletal exam: PRESENT: ambulatory Neurological exam: PRESENT: alert, awake, oriented to person, oriented to place , oriented to time, oriented to situation. ABSENT: CN II-XII grossly intact Psychiatric exam: PRESENT: appropriate affect, normal mood Skin exam: PRESENT: intact, normal color Results Laboratory Results: 08/17/17 04:00 08/17/17 04:00 08/17/17 08/17/17 04:00 04:00 WBC 8.9 RBC 2.46 L Hgb 8.0 L Hct 24.3 L MCV 99 H MCH 32.7 MCHC 33.1 RDW 15.9 H Plt Count 265 Seg Neutrophils % 84.8 H Lymphocytes % 8.9 L Monocytes % 6.3 Eosinophils % 0.0 Basophils % 0.0 Absolute Neutrophils 7.5 Absolute Lymphocytes 0.8 Absolute Monocytes 0.6 Absolute Eosinophils 0.0 Absolute Basophils 0.0 Sodium 137.7 Potassium 3.6 Chloride 104 Carbon Dioxide 19 L Anion Gap 15 BUN 104 H Creatinine 5.86 H Est GFR ( Amer) 8 L Est GFR (Non-Af Amer) 7 L Glucose 173 H Uric Acid 6.2 Calcium 9.2 Phosphorus 6.1 H Total Bilirubin < 0.1 L AST 16 ALT 13 Alkaline Phosphatase 99 Total Protein 4.8 L Albumin 2.8 L 08/13/17 05:55 Troponin I 0.017 Impressions: Chest X-Ray 08/13/17 00:00 IMPRESSION: 1. No acute pulmonary process identified. Stable appearance of the chest. Renal Ultrasound 08/14/17 06:00 IMPRESSION: CHRONIC MEDICAL RENAL DISEASE. NO HYDRONEPHROSIS. Vascular Ultrasound 08/14/17 06:00 IMPRESSION: NO DOPPLER EVIDENCE OF HEMODYNAMICALLY SIGNIFICANT RENAL ARTERY STENOSIS. Assessment & Plan - Diagnosis (1) Hypertension Qualifiers: Hypertension type: essential hypertension Qualified Code(s): I10 - Essential (primary) hypertension Is this a current diagnosis for this admission?: Yes Plan: Continue current management (2) Hypothyroidism Qualifiers: Hypothyroidism type: acquired Qualified Code(s): E03.9 - Hypothyroidism, unspecified Is this a current diagnosis for this admission?: Yes Plan: Continue outpatient regimen (3) Macrocytic anemia Is this a current diagnosis for this admission?: Yes Plan: Stable (4) CKD (chronic kidney disease) stage 4, GFR 15-29 ml/min Is this a current diagnosis for this admission?: Yes Plan: Likely contributing to presentation. Being follow-up by Dr. Schmidt and wishes to hold of Lasix oral and place patient on IV fluids. Continue trending (5) Diabetes mellitus Qualifiers: Diabetes mellitus type: type 2 Diabetes mellitus complication detail: with chronic kidney disease Chronic kidney disease stage: stage 5, not on chronic dialysis Is this a current diagnosis for this admission?: Yes Plan: Uncontrolled because of use of steroids. Improving since of IV steroids. Continue current regimen (6) Acute respiratory failure Qualifiers: Respiratory failure complication: unspecified whether with hypoxia or hypercapnia Qualified Code(s): J96.00 - Acute respiratory failure, unspecified whether with hypoxia or hypercapnia Is this a current diagnosis for this admission?: Yes Plan: Off bipap and oxygen (7) Diastolic CHF Qualifiers: Heart failure chronicity: acute on chronic Qualified Code(s): I50.33 - Acute on chronic diastolic (congestive) heart failure Is this a current diagnosis for this admission?: Yes Plan: Acute episode resolved. Patient suffering from acute on chronic diastolic congestive heart failure. Oral Lasix discontinued by Dr. Schmidt due to worsening renal function. (8) Chest congestion Is this a current diagnosis for this admission?: Yes Plan: Can be multifactorial. Resolved. Discontinue nebulizer treatments (9) Papillary fibroelastoma of heart Is this a current diagnosis for this admission?: Yes Plan: Discontinue IV vancomycin blood cultures negative for 48 hours (10) Constipation Qualifiers: Constipation type: unspecified constipation type Qualified Code(s): K59.00 - Constipation, unspecified Is this a current diagnosis for this admission?: Yes Plan: To add bowel regimen - Time Time Spent with patient: 15-24 minutes Medications reviewed and adjusted accordingly: Yes Anticipated discharge: Home with Homehealth Within: within 72 hours - Inpatient Certification Based on my medical assessment, after consideration of the patient's comorbidities, presenting symptoms, or acuity I expect that the services needed warrant INPATIENT care.: Yes I certify that my determination is in accordance with my understanding of Medicare's requirements for reasonable and necessary INPATIENT services [42 CFR 412.3e].: Yes Medical Necessity: Need Close Monitoring Due to Risk of Patient Decompensation, Need For IV Fluids
--- NOTE | 2017-08-17 13:53 | PDOC PROGRESS REPORT ---
Subjective Progress Note for:: 08/17/17 Reason For Visit: Patient seen today.Looking much better and she is eating her lunch good. She looks happy.Denies any chest pains, dyspnea, Uremic symptoms.C/O Constipation and is being worked on by Hospitalist.Labs and medications reviewed with her and daughter by bedside.No gI bleeds. Physical Exam Vital Signs: Temp Pulse Resp BP Pulse Ox 97.5 F 69 18 159/55 H 98 08/17/17 12:18 08/17/17 12:18 08/17/17 12:18 08/17/17 12:18 08/17/17 12:18 Intake & Output 08/16/17 08/17/17 08/18/17 06:59 06:59 06:59 Intake Total 2492 1505 Output Total 1600 Balance 892 1505 Weight 78.8 kg 77.4 kg General appearance: PRESENT: no acute distress Respiratory exam: PRESENT: clear to auscultation darcy. ABSENT: crackles, rhonchi Cardiovascular exam: PRESENT: RRR, +S1, +S2 GI/Abdominal exam: PRESENT: normal bowel sounds, soft. ABSENT: ascites, organomegaly, tenderness Extremities exam: ABSENT: pedal edema Neurological exam: PRESENT: alert, awake, oriented to person, oriented to place Skin exam: PRESENT: dry. ABSENT: cyanosis, erythema, mottled Results Laboratory Results: 08/17/17 04:00 08/17/17 04:00 08/17/17 08/17/17 04:00 04:00 WBC 8.9 RBC 2.46 L Hgb 8.0 L Hct 24.3 L MCV 99 H MCH 32.7 MCHC 33.1 RDW 15.9 H Plt Count 265 Seg Neutrophils % 84.8 H Lymphocytes % 8.9 L Monocytes % 6.3 Eosinophils % 0.0 Basophils % 0.0 Absolute Neutrophils 7.5 Absolute Lymphocytes 0.8 Absolute Monocytes 0.6 Absolute Eosinophils 0.0 Absolute Basophils 0.0 Sodium 137.7 Potassium 3.6 Chloride 104 Carbon Dioxide 19 L Anion Gap 15 BUN 104 H Creatinine 5.86 H Est GFR ( Amer) 8 L Est GFR (Non-Af Amer) 7 L Glucose 173 H Uric Acid 6.2 Calcium 9.2 Phosphorus 6.1 H Total Bilirubin < 0.1 L AST 16 ALT 13 Alkaline Phosphatase 99 Total Protein 4.8 L Albumin 2.8 L 02/08/18 05:55 Troponin I 0.017 Impressions: Chest X-Ray 08/13/17 00:00 IMPRESSION: 1. No acute pulmonary process identified. Stable appearance of the chest. Renal Ultrasound 08/14/17 06:00 IMPRESSION: CHRONIC MEDICAL RENAL DISEASE. NO HYDRONEPHROSIS. Vascular Ultrasound 08/14/17 06:00 IMPRESSION: NO DOPPLER EVIDENCE OF HEMODYNAMICALLY SIGNIFICANT RENAL ARTERY STENOSIS. Assessment & Plan - Diagnosis (1) BRYANNA (acute kidney injury) Plan: Combination of early CHF /chest infection. Non Oliguric. Her renal nos are continuing to deteriorate. However now clinically she looks dry - overdiuresis. Stop all diuretics temporarily and start gentle hydration. Discussed with daughter. Would keep her in hospital till renal nos are trending down as she is not a candidate for [facility] [employer] [facility] as per daughter. No features for acute indication for HD now. (2) Acute bronchitis Plan: Improved. (3) Anemia in CKD (chronic kidney disease) Plan: Monitor .She is on EPO. However she has iron deficiency indices and so will load her with IV Ferraheme. Discussed about it - including side effects of anaphylaxis with her and her son at bedside and willing to proceed. (4) CKD (chronic kidney disease) stage 5, GFR less than 15 ml/min Plan: Gradual worsening of her gfr over the last few months.Still acute insult of her baseline with no improvement.Fortunately no acute indications for HD which she has chosen not to go for . (6) Hypertension Qualifiers: Hypertension type: essential hypertension Qualified Code(s): I10 - Essential (primary) hypertension Is this a current diagnosis for this admission?: Yes Plan: Relatively controlled.Monitor.
[2017-08-17] MEDS ORDERED: FERUMOXYTOL 510 MG in NORMAL SALINE 100 ML IV ONE (15:00)
[2017-08-17] MEDS: LACTULOSE SYRUP 20 GM/30 ML UDCUP PO SCH (22:19)
[2017-08-18] MEDS: LEVOTHYROXINE SODIUM 0.025 MG TABLET PO SCH (05:22)
[2017-08-18] MEDS: LEVOTHYROXINE SODIUM 0.1 MG TABLET PO SCH (05:22)
[2017-08-18] MEDS: LANSOPRAZOLE 15 MG TAB.RAP.DR PO SCH (05:22)
[2017-08-18 07:13] LABS: HEMATOCRIT 25.8 % (36.0-47.0); HEMOGLOBIN 8.8 g/dL (12.0-15.5); MEAN CORPUSCULAR HEMOGLOBIN 33.4 pg (27.0-33.4); MEAN CORPUSCULAR VOLUME 98 fl (80-97); PLATELET COUNT 257 10^3/uL (150-450); RED BLOOD COUNT 2.63 10^6/uL (3.72-5.28); RED CELL DISTRIBUTION WIDTH 16.1 % (11.5-14.0); WHITE BLOOD COUNT 6.3 10^3/uL (4.0-10.5)
[2017-08-18 07:34] LABS: ANION GAP 12 (5-19); BLOOD UREA NITROGEN 113 mg/dL (7-20); CALCIUM 9.6 mg/dL (8.4-10.2); CARBON DIOXIDE 19 mmol/L (22-30); CHLORIDE 104 mmol/L (98-107); GLUCOSE 124 mg/dL (75-110); POTASSIUM 3.5 mmol/L (3.6-5.0); SODIUM 135.2 mmol/L (137-145)
[2017-08-18] MEDS ORDERED: BISACODYL 10 MG SUPP.RECT PR PRN (08:23)
[2017-08-18] MEDS: INSULIN GLARGINE,HUM.REC.ANLOG 300 UNIT/3 ML INSULN.PEN SUBCUT SCH (08:45)
[2017-08-18] MEDS ORDERED: POTASSIUM CHLORIDE 10 MEQ TABLET.SA PO ONE (10:00)
[2017-08-18] MEDS: HYDRALAZINE HCL 50 MG TABLET PO SCH ×3 (10:43→17:44)
[2017-08-18] MEDS: TRAMADOL HCL 50 MG TABLET PO SCH (10:44)
[2017-08-18] MEDS: CLONIDINE HCL 0.1 MG TABLET PO SCH ×3 (10:44→17:45)
[2017-08-18] MEDS: CARVEDILOL 12.5 MG TABLET PO SCH ×2 (10:44→21:21)
[2017-08-18] MEDS: MAGNESIUM OXIDE 400 MG TABLET PO SCH (10:44)
[2017-08-18] MEDS: ALLOPURINOL 100 MG TABLET PO SCH (10:44)
[2017-08-18] MEDS: ISOSORBIDE MONONITRATE 60 MG TAB.ER.24H PO SCH (10:46)
[2017-08-18] MEDS: AMLODIPINE BESYLATE 10 MG TABLET PO SCH (10:46)
[2017-08-18] MEDS: POLYETHYLENE GLYCOL 3350 POWDER 17 GM/1 PACKET PO SCH (10:55)
[2017-08-18] MEDS: OSELTAMIVIR PHOSPHATE 6 MG/1 ML SUSP 60 ML PO SCH (12:30)
[2017-08-18] MEDS: INSULIN LISPRO 100 UNIT/ML 3 ML VIAL SUBCUT PRN ×3 (12:30→22:42)
[2017-08-18] MEDS: OXYCODONE-ACETAMINOPHEN 5-325 MG TABLET PO PRN ×2 (12:40→18:40)
[2017-08-18] MEDS ORDERED: 1/2 NORMAL SALINE 1,000 ML IV PRN (13:44)
--- NOTE | 2017-08-18 17:00 | PDOC PROGRESS REPORT ---
Subjective Progress Note for:: 08/18/17 Reason For Visit: Patient seen today. She was feeling well earlier today until she developed some hip pain which was only relieved after a percocet and now she is feeling better. She did get the IV Iron yesterday without any issues. She did walk outside yesterday with help. Denies any chest pains, dyspnea. Good appetite.Labs and medications were reviewed with her and her son who was bedside. Physical Exam Vital Signs: Temp Pulse Resp BP Pulse Ox 97.4 F 64 18 130/47 H 93 08/18/17 15:34 08/18/17 15:34 08/18/17 15:34 08/18/17 15:34 08/18/17 15:34 Intake & Output 08/17/17 08/18/17 08/19/17 06:59 06:59 06:59 Intake Total 1505 1891 620 Balance 1505 1891 620 Weight 77.4 kg 78.2 kg General appearance: PRESENT: no acute distress Respiratory exam: PRESENT: clear to auscultation darcy. ABSENT: crackles, rhonchi Cardiovascular exam: PRESENT: RRR, +S1, +S2 GI/Abdominal exam: PRESENT: normal bowel sounds, soft. ABSENT: ascites, organomegaly, tenderness Extremities exam: ABSENT: pedal edema Neurological exam: PRESENT: alert, awake, oriented to person, oriented to place Psychiatric exam: PRESENT: appropriate affect Skin exam: ABSENT: erythema, mottled Results Laboratory Results: 08/18/17 06:58 08/18/17 06:58 08/18/17 08/18/17 08/18/17 06:58 06:58 06:58 WBC 6.3 RBC 2.63 L Hgb 8.8 L Hct 25.8 L MCV 98 H MCH 33.4 MCHC 34.0 RDW 16.1 H Plt Count 257 Sodium 135.2 L Potassium 3.5 L Chloride 104 Carbon Dioxide 19 L Anion Gap 12 BUN 113 H Creatinine 5.58 H Est GFR ( Amer) 9 L Est GFR (Non-Af Amer) 7 L Glucose 124 H Calcium 9.6 PTH Intact 580.4 H 08/13/17 05:55 Troponin I 0.017 Impressions: Chest X-Ray 08/13/17 00:00 IMPRESSION: 1. No acute pulmonary process identified. Stable appearance of the chest. Renal Ultrasound 08/14/17 06:00 IMPRESSION: CHRONIC MEDICAL RENAL DISEASE. NO HYDRONEPHROSIS. Vascular Ultrasound 08/14/17 06:00 IMPRESSION: NO DOPPLER EVIDENCE OF HEMODYNAMICALLY SIGNIFICANT RENAL ARTERY STENOSIS. Assessment & Plan - Diagnosis (1) BRYANNA (acute kidney injury) Plan: Combination of early CHF /chest infection. Non Oliguric. Her renal nos are slightly better today. If she continues to trend down , then would be OK to discharge from a renal point of view and I can follow her in 10 days time with labs. (3) Anemia in CKD (chronic kidney disease) Plan: Monitor .She is on EPO. S/P IV Ferraheme. She should get another dose as an Out patient in a week. (4) CKD (chronic kidney disease) stage 5, GFR less than 15 ml/min Plan: Gradual worsening of her gfr over the last few months.Still acute insult of her baseline with some improvement as of todays labs.Fortunately no acute indications for HD which she has chosen not to go for . (6) Hypertension Qualifiers: Hypertension type: essential hypertension Qualified Code(s): I10 - Essential (primary) hypertension Is this a current diagnosis for this admission?: Yes Plan: Controlled.Monitor.
--- NOTE | 2017-08-18 17:01 | PDOC PROGRESS REPORT ---
Subjective Progress Note for:: 08/18/17 Subjective:: Patient complains of being wheezy today. Nurse reports that patient had excellent results and was able to move her bowels Review of systems All organ systems evaluated and negative except as in subjective All significant laboratories and diagnostics have been reviewed Reason For Visit: VOLUME OVERLOAD Physical Exam Vital Signs: Temp Pulse Resp BP Pulse Ox 97.6 F 75 18 173/53 H 100 08/18/17 04:50 08/18/17 04:50 08/18/17 04:50 08/18/17 04:50 08/18/17 04:50 Intake & Output 08/17/17 08/18/17 08/19/17 06:59 06:59 06:59 Intake Total 1505 1891 Balance 1505 1891 Weight 77.4 kg 78.2 kg General appearance: PRESENT: cooperative, obese Head exam: PRESENT: atraumatic, normocephalic Eye exam: PRESENT: conjunctiva pink, EOMI, PERRLA Ear exam: PRESENT: normal external ear exam Mouth exam: PRESENT: moist Neck exam: PRESENT: full ROM. ABSENT: JVD, lymphadenopathy, tenderness Respiratory exam: PRESENT: crackles, wheezes Cardiovascular exam: PRESENT: RRR. ABSENT: diastolic murmur, systolic murmur Vascular exam: PRESENT: normal capillary refill GI/Abdominal exam: PRESENT: normal bowel sounds, soft. ABSENT: tenderness Extremities exam: PRESENT: full ROM, +2 edema Musculoskeletal exam: PRESENT: ambulatory Neurological exam: PRESENT: alert, awake, oriented to person, oriented to place , oriented to time, oriented to situation, CN II-XII grossly intact Psychiatric exam: PRESENT: appropriate affect, normal mood Skin exam: PRESENT: intact, normal color Results Laboratory Results: 08/17/17 04:00 08/17/17 04:00 08/13/17 05:55 Troponin I 0.017 Impressions: Chest X-Ray 08/13/17 00:00 IMPRESSION: 1. No acute pulmonary process identified. Stable appearance of the chest. Renal Ultrasound 08/14/17 06:00 IMPRESSION: CHRONIC MEDICAL RENAL DISEASE. NO HYDRONEPHROSIS. Vascular Ultrasound 08/14/17 06:00 IMPRESSION: NO DOPPLER EVIDENCE OF HEMODYNAMICALLY SIGNIFICANT RENAL ARTERY STENOSIS. Assessment & Plan - Diagnosis (1) Hypertension Qualifiers: Hypertension type: essential hypertension Qualified Code(s): I10 - Essential (primary) hypertension Is this a current diagnosis for this admission?: Yes Plan: Continue current management (2) Hypothyroidism Qualifiers: Hypothyroidism type: acquired Qualified Code(s): E03.9 - Hypothyroidism, unspecified Is this a current diagnosis for this admission?: Yes Plan: Continue outpatient regimen (3) Macrocytic anemia Is this a current diagnosis for this admission?: Yes Plan: Stable. Getting iron IV per renal (4) CKD (chronic kidney disease) stage 4, GFR 15-29 ml/min Is this a current diagnosis for this admission?: Yes Plan: Likely contributing to presentation. Being follow-up by Dr. Schmidt. (5) Diabetes mellitus Qualifiers: Diabetes mellitus type: type 2 Diabetes mellitus complication detail: with chronic kidney disease Chronic kidney disease stage: stage 5, not on chronic dialysis Is this a current diagnosis for this admission?: Yes Plan: Improving and continue current regimen (6) Acute respiratory failure Qualifiers: Respiratory failure complication: unspecified whether with hypoxia or hypercapnia Qualified Code(s): J96.00 - Acute respiratory failure, unspecified whether with hypoxia or hypercapnia Is this a current diagnosis for this admission?: Yes Plan: Off bipap and oxygen. Resolved. (7) Diastolic CHF Qualifiers: Heart failure chronicity: acute on chronic Qualified Code(s): I50.33 - Acute on chronic diastolic (congestive) heart failure Is this a current diagnosis for this admission?: Yes Plan: Acute episode resolved. Patient suffering from acute on chronic diastolic congestive heart failure. Oral Lasix discontinued by Dr. Schmidt due to worsening renal function. May require to go back to Lasix soon due to lung congestion (8) Chest congestion Is this a current diagnosis for this admission?: Yes Plan: Can be multifactorial. Resolved. Reorder nebulizer treatments. (9) Papillary fibroelastoma of heart Is this a current diagnosis for this admission?: Yes Plan: Discontinue IV vancomycin blood cultures negative for 48 hours (10) Constipation Qualifiers: Constipation type: unspecified constipation type Qualified Code(s): K59.00 - Constipation, unspecified Is this a current diagnosis for this admission?: Yes Plan: Results of the continue bowel regimen (11) Hypokalemia Is this a current diagnosis for this admission?: Yes Plan: Replace p.o. and trend - Time Time Spent with patient: 15-24 minutes Medications reviewed and adjusted accordingly: Yes Anticipated discharge: Home with Homehealth Within: within 48 hours - Inpatient Certification Based on my medical assessment, after consideration of the patient's comorbidities, presenting symptoms, or acuity I expect that the services needed warrant INPATIENT care.: Yes I certify that my determination is in accordance with my understanding of Medicare's requirements for reasonable and necessary INPATIENT services [42 CFR 412.3e].: Yes Medical Necessity: Need Close Monitoring Due to Risk of Patient Decompensation, Need For IV Fluids
[2017-08-18] MEDS: ACETAMINOPHEN 325 MG TABLET PO PRN (21:22)
[2017-08-18] MEDS: LACTULOSE SYRUP 20 GM/30 ML UDCUP PO SCH (21:23)
[2017-08-18] MEDS ORDERED: OXYCODONE HCL IR 5 MG TABLET PO ONE (22:45)
[2017-08-19] MEDS ORDERED: TRAMADOL HCL 50 MG TABLET PO ONE (01:00)
[2017-08-19] MEDS: OXYCODONE-ACETAMINOPHEN 5-325 MG TABLET PO PRN (01:27)
[2017-08-19] MEDS: LEVOTHYROXINE SODIUM 0.1 MG TABLET PO SCH (06:10)
[2017-08-19] MEDS: LANSOPRAZOLE 15 MG TAB.RAP.DR PO SCH (06:10)
[2017-08-19] MEDS: ACETAMINOPHEN 325 MG TABLET PO PRN (06:10)
[2017-08-19] MEDS: LEVOTHYROXINE SODIUM 0.025 MG TABLET PO SCH (06:10)
[2017-08-19 07:31] LABS: HEMOGLOBIN 9.4 g/dL (12.0-15.5); MEAN CORPUSCULAR HEMOGLOBIN 32.8 pg (27.0-33.4); MEAN CORPUSCULAR HGB CONC 33.5 g/dL (32.0-36.0); MEAN CORPUSCULAR VOLUME 98 fl (80-97); PLATELET COUNT 274 10^3/uL (150-450); RED BLOOD COUNT 2.86 10^6/uL (3.72-5.28); RED CELL DISTRIBUTION WIDTH 16.2 % (11.5-14.0)
[2017-08-19 07:53] LABS: ANION GAP 13 (5-19); BLOOD UREA NITROGEN 110 mg/dL (7-20); CALCIUM 9.9 mg/dL (8.4-10.2); CARBON DIOXIDE 18 mmol/L (22-30); CHLORIDE 102 mmol/L (98-107); GLUCOSE 100 mg/dL (75-110); MAGNESIUM 2.4 mg/dL (1.6-2.3); POTASSIUM 4.3 mmol/L (3.6-5.0); SODIUM 132.9 mmol/L (137-145)
[2017-08-19] MEDS ORDERED: OXYCODONE-ACETAMINOPHEN 5-325 MG TABLET PO PRN (09:08)
[2017-08-19] MEDS: INSULIN GLARGINE,HUM.REC.ANLOG 300 UNIT/3 ML INSULN.PEN SUBCUT SCH (09:28)
[2017-08-19] MEDS ORDERED: EZETIMIBE 10 MG TABLET PO SCH ×2 (10:00)
[2017-08-19] MEDS ORDERED: FENTANYL 25 MCG/HR PATCH.TD72 TD SCH (10:00)
[2017-08-19] MEDS: POLYETHYLENE GLYCOL 3350 POWDER 17 GM/1 PACKET PO SCH (10:41)
[2017-08-19] MEDS: HYDRALAZINE HCL 50 MG TABLET PO SCH ×3 (10:42→18:34)
[2017-08-19] MEDS: CARVEDILOL 12.5 MG TABLET PO SCH ×2 (10:43→22:59)
[2017-08-19] MEDS: POTASSIUM CHLORIDE 10 MEQ TABLET.SA PO SCH (10:43)
[2017-08-19] MEDS: MAGNESIUM OXIDE 400 MG TABLET PO SCH (10:43)
[2017-08-19] MEDS: EZETIMIBE 10 MG TABLET PO SCH (10:43)
[2017-08-19] MEDS: GABAPENTIN 100 MG CAPSULE PO SCH ×2 (10:43→22:59)
[2017-08-19] MEDS: ISOSORBIDE MONONITRATE 60 MG TAB.ER.24H PO SCH (10:44)
[2017-08-19] MEDS: CLONIDINE HCL 0.1 MG TABLET PO SCH ×3 (10:44→18:34)
[2017-08-19] MEDS: AMLODIPINE BESYLATE 10 MG TABLET PO SCH (10:44)
[2017-08-19] MEDS: ALLOPURINOL 100 MG TABLET PO SCH (10:44)
[2017-08-19] MEDS: OSELTAMIVIR PHOSPHATE 6 MG/1 ML SUSP 60 ML PO SCH (14:05)
--- NOTE | 2017-08-19 15:19 | PDOC PROGRESS REPORT ---
Subjective Progress Note for:: 08/19/17 Subjective:: Patient admits that that had a rough night last night with left hip pain. Nurse reports that pain is better today since sitting on a chair. Review of systems All organ systems evaluated and negative except as in subjective All significant laboratories and diagnostics have been reviewed Reason For Visit: VOLUME OVERLOAD Physical Exam Vital Signs: Temp Pulse Resp BP Pulse Ox 97.3 F 69 17 144/44 H 100 08/19/17 00:00 08/19/17 02:00 08/19/17 00:00 08/19/17 00:00 08/19/17 00:00 Intake & Output 08/17/17 08/18/17 08/19/17 06:59 06:59 06:59 Intake Total 1505 1891 680 Balance 1505 1891 680 Weight 77.4 kg 78.2 kg 78.8 kg General appearance: PRESENT: cooperative, obese Head exam: PRESENT: atraumatic, normocephalic Eye exam: PRESENT: conjunctiva pink, EOMI, PERRLA Ear exam: PRESENT: normal external ear exam Mouth exam: PRESENT: moist Neck exam: PRESENT: full ROM. ABSENT: JVD, lymphadenopathy, tenderness - Adequate movement of air with soft basilar crackles and wheezes Cardiovascular exam: PRESENT: RRR. ABSENT: diastolic murmur, systolic murmur Vascular exam: PRESENT: normal capillary refill GI/Abdominal exam: PRESENT: normal bowel sounds, soft. ABSENT: tenderness Extremities exam: PRESENT: full ROM, +1 edema Musculoskeletal exam: PRESENT: ambulatory Neurological exam: PRESENT: alert, awake, oriented to person, oriented to place , oriented to time, oriented to situation, CN II-XII grossly intact Psychiatric exam: PRESENT: appropriate affect, normal mood Skin exam: PRESENT: intact, normal color Results Laboratory Results: 08/18/17 06:58 08/18/17 06:58 08/18/17 08/18/17 08/18/17 06:58 06:58 06:58 WBC 6.3 RBC 2.63 L Hgb 8.8 L Hct 25.8 L MCV 98 H MCH 33.4 MCHC 34.0 RDW 16.1 H Plt Count 257 Sodium 135.2 L Potassium 3.5 L Chloride 104 Carbon Dioxide 19 L Anion Gap 12 BUN 113 H Creatinine 5.58 H Est GFR ( Amer) 9 L Est GFR (Non-Af Amer) 7 L Glucose 124 H Calcium 9.6 PTH Intact 580.4 H 08/13/17 05:55 Troponin I 0.017 Impressions: Chest X-Ray 08/13/17 00:00 IMPRESSION: 1. No acute pulmonary process identified. Stable appearance of the chest. Renal Ultrasound 08/14/17 06:00 IMPRESSION: CHRONIC MEDICAL RENAL DISEASE. NO HYDRONEPHROSIS. Vascular Ultrasound 08/14/17 06:00 IMPRESSION: NO DOPPLER EVIDENCE OF HEMODYNAMICALLY SIGNIFICANT RENAL ARTERY STENOSIS. Assessment & Plan - Diagnosis (1) Hypertension Qualifiers: Hypertension type: renovascular hypertension Qualified Code(s): I15.0 - Renovascular hypertension Is this a current diagnosis for this admission?: Yes Plan: Continue present management (2) Hypothyroidism Qualifiers: Hypothyroidism type: acquired Qualified Code(s): E03.9 - Hypothyroidism, unspecified Is this a current diagnosis for this admission?: Yes Plan: Continue outpatient regimen (3) Macrocytic anemia Is this a current diagnosis for this admission?: Yes Plan: Stable. Getting iron IV per renal (4) CKD (chronic kidney disease) stage 4, GFR 15-29 ml/min Is this a current diagnosis for this admission?: Yes Plan: Likely contributing to presentation. Being follow-up by Dr. Schmidt.. Stable and to discontinue fluids (5) Diabetes mellitus Qualifiers: Diabetes mellitus type: type 2 Diabetes mellitus complication detail: with chronic kidney disease Chronic kidney disease stage: stage 5, not on chronic dialysis Is this a current diagnosis for this admission?: Yes Plan: Stable and to continue current (6) Acute respiratory failure Qualifiers: Respiratory failure complication: unspecified whether with hypoxia or hypercapnia Qualified Code(s): J96.00 - Acute respiratory failure, unspecified whether with hypoxia or hypercapnia Is this a current diagnosis for this admission?: Yes Plan: Off bipap and oxygen. Resolved. (7) Diastolic CHF Qualifiers: Heart failure chronicity: acute on chronic Qualified Code(s): I50.33 - Acute on chronic diastolic (congestive) heart failure Is this a current diagnosis for this admission?: Yes Plan: Acute episode resolved. Patient suffering from acute on chronic diastolic congestive heart failure. Will restart oral Lasix and discontinue IV fluids (8) Chest congestion Is this a current diagnosis for this admission?: Yes Plan: Can be multifactorial. I think at this point in time just relates to chronic congestive heart failure (9) Papillary fibroelastoma of heart Is this a current diagnosis for this admission?: Yes Plan: Discontinue IV vancomycin blood cultures negative for 48 hours (10) Constipation Qualifiers: Constipation type: unspecified constipation type Qualified Code(s): K59.00 - Constipation, unspecified Is this a current diagnosis for this admission?: Yes Plan: Resolved and to continue bowel regimen as (11) Hypokalemia Is this a current diagnosis for this admission?: Yes Plan: Resolve and on oral supplementation - Time Time Spent with patient: 15-24 minutes Medications reviewed and adjusted accordingly: Yes Anticipated discharge: Home with Homehealth Within: within 24 hours - Inpatient Certification Based on my medical assessment, after consideration of the patient's comorbidities, presenting symptoms, or acuity I expect that the services needed warrant INPATIENT care.: Yes I certify that my determination is in accordance with my understanding of Medicare's requirements for reasonable and necessary INPATIENT services [42 CFR 412.3e].: Yes Medical Necessity: Need Close Monitoring Due to Risk of Patient Decompensation
--- NOTE | 2017-08-19 17:35 | PDOC PROGRESS REPORT ---
Subjective Progress Note for:: 08/19/17 Reason For Visit: Patient seen today.Son at bedside. She had a episode of bad low back pain which was finally relieved with Fentanyl patch. Currently she is eating lunch and seems lots better even Physical Exam Vital Signs: Temp Pulse Resp BP Pulse Ox 98.2 F 70 18 146/43 H 100 08/19/17 15:35 08/19/17 15:35 08/19/17 15:35 08/19/17 15:35 08/19/17 15:35 Intake & Output 08/18/17 08/19/17 08/20/17 06:59 06:59 06:59 Intake Total 1891 1180 621 Balance 1891 1180 621 Weight 78.2 kg 78.8 kg General appearance: PRESENT: no acute distress Respiratory exam: PRESENT: clear to auscultation darcy. ABSENT: crackles, rhonchi Cardiovascular exam: PRESENT: RRR, +S1, +S2 GI/Abdominal exam: PRESENT: normal bowel sounds, soft. ABSENT: ascites, organomegaly, tenderness Extremities exam: ABSENT: pedal edema Neurological exam: PRESENT: alert, awake, oriented to person, oriented to place Psychiatric exam: PRESENT: appropriate affect Skin exam: ABSENT: cyanosis, mottled Results Laboratory Results: 08/19/17 06:50 08/19/17 06:50 08/19/17 08/19/17 06:50 06:50 WBC 7.0 RBC 2.86 L Hgb 9.4 L Hct 28.0 L MCV 98 H MCH 32.8 MCHC 33.5 RDW 16.2 H Plt Count 274 Sodium 132.9 L Potassium 4.3 Chloride 102 Carbon Dioxide 18 L Anion Gap 13 BUN 110 H Creatinine 5.58 H Est GFR ( Amer) 9 L Est GFR (Non-Af Amer) 7 L Glucose 100 Calcium 9.9 Magnesium 2.4 H 08/14/17 14:30 Blood Blood Culture - Final NO GROWTH IN 5 DAYS 08/14/17 14:30 Blood Blood Culture - Final NO GROWTH IN 5 DAYS 08/13/17 05:55 Troponin I 0.017 Impressions: Chest X-Ray 08/13/17 00:00 IMPRESSION: 1. No acute pulmonary process identified. Stable appearance of the chest. Renal Ultrasound 08/14/17 06:00 IMPRESSION: CHRONIC MEDICAL RENAL DISEASE. NO HYDRONEPHROSIS. Vascular Ultrasound 08/14/17 06:00 IMPRESSION: NO DOPPLER EVIDENCE OF HEMODYNAMICALLY SIGNIFICANT RENAL ARTERY STENOSIS. Assessment & Plan - Diagnosis (1) BRYANNA (acute kidney injury) Plan: Combination of early CHF /chest infection. Non Oliguric. Her renal nos are static today. Had long discussion with Son Dr Lane Coker. I had a long end of life discussion with him as I have done with his siblings earlier on. The children have decided to have their mom in hospice and comfort care and have her taken home once these are put into motion. They understand that she will not do well on Dialysis and that their options are very limited. I agree with this decision.They would like to have all her lines and labs stopped and only essential medications to be given as anti hypertensives and diabetic medications etc. Discussion was aslo done with her treating RN Helene and utility mechanic on the floor. (2) Acute bronchitis Plan: Improved. (3) Anemia in CKD (chronic kidney disease) Plan: Monitor .She is on EPO. S/P IV Ferraheme. Her hb is better. (4) CKD (chronic kidney disease) stage 5, GFR less than 15 ml/min Plan: Gradual worsening of her gfr over the last few months.Still acute insult of her baseline with some improvement as of todays labs. Unfortuantely no indications of improving renal nos. As per earlier discussion she is going into hospice and comfort care. (6) Hypertension Qualifiers: Hypertension type: renovascular hypertension Qualified Code(s): I15.0 - Renovascular hypertension Is this a current diagnosis for this admission?: Yes Plan: Controlled.Monitor. (7) Low back pain Plan: Likely from her bad hip and has had good relief with current narcotic regimen. Hospitalist to manage and pass on to Hospice. - Time Time with patient: Greater than 35 minutes - of which more than half the time was spend in discussing endof life matters with son and later with RN and utility mechanic.
[2017-08-19] MEDS ORDERED: FUROSEMIDE 40 MG TABLET PO SCH (18:00)
[2017-08-19] MEDS: INSULIN LISPRO 100 UNIT/ML 3 ML VIAL SUBCUT PRN ×2 (18:35→22:59)
[2017-08-19] MEDS: LACTULOSE SYRUP 20 GM/30 ML UDCUP PO SCH (22:59)
[2017-08-20] MEDS: LANSOPRAZOLE 15 MG TAB.RAP.DR PO SCH (05:14)
[2017-08-20] MEDS: LEVOTHYROXINE SODIUM 0.1 MG TABLET PO SCH (05:14)
[2017-08-20] MEDS: LEVOTHYROXINE SODIUM 0.025 MG TABLET PO SCH (05:14)
[2017-08-20] MEDS ORDERED: FUROSEMIDE 80 MG TABLET PO SCH (08:00)
[2017-08-20] MEDS: INSULIN GLARGINE,HUM.REC.ANLOG 300 UNIT/3 ML INSULN.PEN SUBCUT SCH (08:07)
[2017-08-20] MEDS: HYDRALAZINE HCL 50 MG TABLET PO SCH (09:39)
[2017-08-20] MEDS: POTASSIUM CHLORIDE 10 MEQ TABLET.SA PO SCH (09:40)
[2017-08-20] MEDS: ALLOPURINOL 100 MG TABLET PO SCH (09:41)
[2017-08-20] MEDS: GABAPENTIN 100 MG CAPSULE PO SCH (09:41)
[2017-08-20] MEDS: AMLODIPINE BESYLATE 10 MG TABLET PO SCH (09:42)
[2017-08-20] MEDS: MAGNESIUM OXIDE 400 MG TABLET PO SCH (09:42)
[2017-08-20] MEDS: ISOSORBIDE MONONITRATE 60 MG TAB.ER.24H PO SCH (09:42)
[2017-08-20] MEDS: CARVEDILOL 12.5 MG TABLET PO SCH (09:42)
[2017-08-20] MEDS: CLONIDINE HCL 0.1 MG TABLET PO SCH (09:42)
[2017-08-20] MEDS: POLYETHYLENE GLYCOL 3350 POWDER 17 GM/1 PACKET PO SCH (09:44)
--- NOTE | 2017-08-20 11:34 | PDOC PROGRESS REPORT ---
Subjective Progress Note for:: 08/20/17 Reason For Visit: She is comfortable this AM an had a good night. No more of the joi pains.Enjoying her breakfast. Denies any chest pains, dyspnea. Her daughter at bedside. No labs are being done as she is moving into hospice with comfort care. Meds however were reviewed and she and daughter would like to continue on the essentials. Physical Exam Vital Signs: Temp Pulse Resp BP Pulse Ox 98.1 F 65 16 134/45 H 100 08/20/17 08:00 08/20/17 08:00 08/20/17 08:00 08/20/17 08:00 08/20/17 08:00 Intake & Output 08/19/17 08/20/17 08/21/17 06:59 06:59 06:59 Intake Total 1180 746 Balance 1180 746 Weight 78.8 kg General appearance: PRESENT: no acute distress Respiratory exam: PRESENT: clear to auscultation darcy, symmetrical. ABSENT: crackles Cardiovascular exam: PRESENT: RRR, +S1, +S2 GI/Abdominal exam: PRESENT: normal bowel sounds, soft. ABSENT: ascites, organomegaly, tenderness Extremities exam: PRESENT: pedal edema - Trace bilaterally. Neurological exam: PRESENT: alert, awake, oriented to person, oriented to place Results Laboratory Results: 08/19/17 06:50 08/19/17 06:50 08/14/17 14:30 Blood Blood Culture - Final NO GROWTH IN 5 DAYS 08/14/17 14:30 Blood Blood Culture - Final NO GROWTH IN 5 DAYS 08/13/17 05:55 Troponin I 0.017 Impressions: Chest X-Ray 08/13/17 00:00 IMPRESSION: 1. No acute pulmonary process identified. Stable appearance of the chest. Renal Ultrasound 08/14/17 06:00 IMPRESSION: CHRONIC MEDICAL RENAL DISEASE. NO HYDRONEPHROSIS. Vascular Ultrasound 08/14/17 06:00 IMPRESSION: NO DOPPLER EVIDENCE OF HEMODYNAMICALLY SIGNIFICANT RENAL ARTERY STENOSIS. Assessment & Plan - Diagnosis (1) BRYANNA (acute kidney injury) Plan: Combination of early CHF /chest infection. Non Oliguric. Had discussion with daughter and they are moving with the hospice arrangement. Will continue on the essential medications to be given as anti hypertensives and diabetic medications etc. Add po Lasix. Plan to give her one more IV Iron as OP. I am going to sign off. They can make a appt at my office in case they want patient to be seen. Also did talk about EPO and I would not be against it if hospice is OK with that. (3) Anemia in CKD (chronic kidney disease) Plan: .She is on EPO. S/P IV Ferraheme x 1 dose and needs one more as OP. (4) CKD (chronic kidney disease) stage 5, GFR less than 15 ml/min Plan: Gradual worsening of her gfr over the last few months. As per earlier discussion she is going into hospice and comfort care. (6) Hypertension Qualifiers: Hypertension type: renovascular hypertension Qualified Code(s): I15.0 - Renovascular hypertension Is this a current diagnosis for this admission?: Yes
[2017-08-20 12:09] VITALS: BP 152/34
[2017-08-20] MEDS ORDERED: HYDRALAZINE HCL 50 MG TABLET PO SCH (14:00)
[2017-08-20] MEDS ORDERED: IPRATROPIUM/ALBUTEROL 0.5-2.5 MG/3 ML AMPUL NEB PRN (14:00)
--- NOTE | 2017-08-20 18:46 | PDOC DISCHARGE SUMMARY ---
General - Admit/Disc Date/PCP Admission Date/Primary Care Provider: 08/12/17 20:49 Discharge Date: 08/20/17 - Discharge Diagnosis (1) Diastolic CHF Is this a current diagnosis for this admission?: Yes (2) Acute respiratory failure Is this a current diagnosis for this admission?: Yes (3) CKD (chronic kidney disease) stage 4, GFR 15-29 ml/min Is this a current diagnosis for this admission?: Yes (4) Hypertension Is this a current diagnosis for this admission?: Yes (5) Hypothyroidism Is this a current diagnosis for this admission?: Yes (6) Macrocytic anemia Is this a current diagnosis for this admission?: Yes (7) Diabetes mellitus Is this a current diagnosis for this admission?: Yes (8) Chest congestion Is this a current diagnosis for this admission?: Yes (9) Papillary fibroelastoma of heart Is this a current diagnosis for this admission?: Yes (10) Constipation Is this a current diagnosis for this admission?: Yes (11) Hypokalemia Is this a current diagnosis for this admission?: Yes - Additional Information Resuscitation Status: Full Code Discharge Diet: Diabetic Discharge Activity: Activity As Tolerated, Balance Activity w/Rest, Weigh Daily Prescriptions: Amlodipine Besylate [Norvasc 10 mg Tablet] 10 mg PO DAILY #30 tablet Fentanyl [Duragesic 25 mcg/hr Transdermal Patch] 1 each TD Q3DAYS #1 patch.td72 Gabapentin [Neurontin 100 mg Capsule] 100 mg PO Q12 #60 capsule Isosorbide Mononitrate [Imdur 60 mg Tablet.er] 60 mg PO DAILY #60 tab.er.24h Oxycodone HCl/Acetaminophen [Percocet 5-325 mg Tablet] 1.5 tab PO Q6HP PRN #14 tablet PRN Reason: Home Medications: Allopurinol [Zyloprim 100 mg Tablet] 100 mg PO DAILY 08/13/17 Calcitriol [Rocaltrol 0.5 mcg Capsule] 0.5 mcg PO DAILY 08/13/17 Carvedilol [Coreg 25 mg Tablet] 25 mg PO Q12 08/13/17 Clonidine HCl [Catapres 0.2 mg Tablet] 0.2 mg PO Q8 08/13/17 Ergocalciferol (Vitamin D2) [Vitamin D2] 50,000 unit PO MEJIA@1000 08/13/17 Ezetimibe [Zetia 10 mg Tablet] 10 mg PO MOWEFR@1000 08/13/17 Furosemide [Lasix 40 mg Tablet] 80 mg PO DAILY@1400 08/13/17 Furosemide [Lasix 40 mg Tablet] 120 mg PO QAM 08/13/17 Gemfibrozil [Lopid 600 mg Tablet] 600 mg PO BID 08/13/17 Hydralazine HCl 100 mg PO Q8 08/13/17 Insulin Glargine,Hum.rec.anlog [Lantus Solostar] 6 unit SQ QAM 08/13/17 Insulin Lispro [Humalog Insulin (Lispro) 100 unit/mL] 1 unit INJ TID 08/13/17 Levothyroxine Sodium [Synthroid] 125 mcg PO DAILY 08/13/17 Magnesium Oxide [Mag-Ox 400 mg Tablet] 400 mg PO DAILY 08/13/17 Omeprazole 10 mg PO DAILY 08/13/17 Amlodipine Besylate [Norvasc 10 mg Tablet] 10 mg PO DAILY #30 tablet 08/20/17 Fentanyl [Duragesic 25 mcg/hr Transdermal Patch] 1 each TD Q3DAYS #1 patch.td72 08/20/17 Gabapentin [Neurontin 100 mg Capsule] 100 mg PO Q12 #60 capsule 08/20/17 Isosorbide Mononitrate [Imdur 60 mg Tablet.er] 60 mg PO DAILY #60 tab.er.24h Oxycodone HCl/Acetaminophen [Percocet 5-325 mg Tablet] 1.5 tab PO Q6HP PRN #14 tablet 08/20/17 History of Present Illness History of Present Illness: ARSALAN COLLINS is a 87 year old female with a history of hypertension, TIA, bradycardia, type 2 diabetes, hypercholesterolemia, end-stage renal disease not on dialysis and followed by Dr. Schmidt. Presented with a gradual onset of worsening edema. Patient stated after [place] noticed that the edema is getting worse. Patient had been evaluated by Dr. Schmidt and Lasix has been adjusted. A week prior to presentation they went to see Dr. Schmidt and her Lasix was adjusted to 2 pills in the morning and 4 pills in the evening. Patient had been on this regimen for about a week however patient continues to gain weight. Patient's daughter stated that she thought her legs look more swollen. Patient noticed that she could not recline or lay down. Patient stated that laying down flat was not an issue for her. She also noticed that she was very short of breath with activity. She denied any shortness of breath at rest. Patient also complained of coughing but nothing comes out. Patient denied any fevers or chills she has been eating well. Besides not being able to lie flat patient states is the best she has felt in a long time. In the ED patient was found to have a BNP of 37,090. Creatinine appears fairly stable at 4.0. Her remaining electrolytes were pretty much stable. Patient was given 20 of IV Lasix in the ED. Chest x-ray was clear. Hospitalist was called to admit patient for volume overload due to her end-stage renal disease Hospital Course Hospital Course: Patient was admitted under hospitalist service. She became acutely short of breath due to congestive heart failure which required for patient to be placed on BiPAP. Upon further diuresis respiratory status improved and patient was able to be weaned off BiPAP. Diuresis continued as well as blood pressure control. Bout of congestive heart failure was deemed to be due to diastolic dysfunction. Patient required to be placed on nebulizer treatments as she continued with lung congestion. Further chest congestion was deemed to be multifactorial with a possible viral illness. Echocardiogram obtained showed a fibroblastoma. Blood cultures were obtained to rule out endocarditis. Blood cultures were negative. Close follow-up of renal function was pursued and Dr. Schmidt eventually recommended family for patient to go on hospice. Patient does suffer for arthritis which responded to fentanyl patch and Percocet. Since patient had been stabilized reasonably and family was amenable for her to go on hospice prompted to discharge Physical Exam Vital Signs: Temp Pulse Resp BP Pulse Ox 98.2 F 72 13 150/44 H 99 08/19/17 23:05 08/19/17 23:05 08/19/17 23:05 08/19/17 23:05 08/19/17 23:05 Intake & Output 08/18/17 08/19/17 08/20/17 06:59 06:59 06:59 Intake Total 1891 1180 621 Balance 1891 1180 621 Weight 78.2 kg 78.8 kg General appearance: PRESENT: cooperative, obese Head exam: PRESENT: atraumatic, normocephalic Eye exam: PRESENT: conjunctiva pink, EOMI, PERRLA Ear exam: PRESENT: normal external ear exam Mouth exam: PRESENT: moist Neck exam: PRESENT: full ROM. ABSENT: JVD, lymphadenopathy, tenderness Respiratory exam: PRESENT: crackles, other - Soft basilar crackles with adequate movement of air Cardiovascular exam: PRESENT: diastolic murmur, RRR. ABSENT: systolic murmur Vascular exam: PRESENT: normal capillary refill GI/Abdominal exam: PRESENT: normal bowel sounds, soft. ABSENT: tenderness Extremities exam: PRESENT: full ROM, +1 edema Musculoskeletal exam: PRESENT: ambulatory Neurological exam: PRESENT: alert, awake, oriented to person, oriented to place , oriented to time, oriented to situation, CN II-XII grossly intact Psychiatric exam: PRESENT: appropriate affect, normal mood Skin exam: PRESENT: intact, normal color Results Laboratory Results: 08/19/17 06:50 08/19/17 06:50 08/19/17 08/19/17 06:50 06:50 WBC 7.0 RBC 2.86 L Hgb 9.4 L Hct 28.0 L MCV 98 H MCH 32.8 MCHC 33.5 RDW 16.2 H Plt Count 274 Sodium 132.9 L Potassium 4.3 Chloride 102 Carbon Dioxide 18 L Anion Gap 13 BUN 110 H Creatinine 5.58 H Est GFR ( Amer) 9 L Est GFR (Non-Af Amer) 7 L Glucose 100 Calcium 9.9 Magnesium 2.4 H 08/14/17 14:30 Blood Blood Culture - Final NO GROWTH IN 5 DAYS 08/14/17 14:30 Blood Blood Culture - Final NO GROWTH IN 5 DAYS 08/13/17 05:55 Troponin I 0.017 Impressions: Chest X-Ray 08/13/17 00:00 IMPRESSION: 1. No acute pulmonary process identified. Stable appearance of the chest. Renal Ultrasound 08/14/17 06:00 IMPRESSION: CHRONIC MEDICAL RENAL DISEASE. NO HYDRONEPHROSIS. Vascular Ultrasound 08/14/17 06:00 IMPRESSION: NO DOPPLER EVIDENCE OF HEMODYNAMICALLY SIGNIFICANT RENAL ARTERY STENOSIS. Plan Time Spent: Less than 30 Minutes - Discharge home with hospice
== END 2017-08-20 13:30 | disposition hospice, home (50) | DRG 304 ==
LOC: ER 18:04 → EH 20:49 → 5 08-13 14:41
PROVIDERS: ADMIT Pediatrics; ATTEND Pediatrics
PROC: 5A09357 Assistance with Respiratory Ventilation, Less than 24 Consecutive Hours, Continuous Positive Airway Pressure (ICD-10-PCS; principal; 2017-08-14)
PROC: 3E0F73Z Introduction of Anti-inflammatory into Respiratory Tract, Via Natural or Artificial Opening (ICD-10-PCS; 2017-08-14)
DX: I16.1 Hypertensive emergency (principal); J96.00 Acute respiratory failure, unspecified whether with hypoxia or hypercapnia; I50.33 Acute on chronic diastolic (congestive) heart failure; I42.4 Endocardial fibroelastosis; N18.5 Chronic kidney disease, stage 5; N17.9 Acute kidney failure, unspecified; I13.2 Hypertensive heart and chronic kidney disease with heart failure and with stage 5 chronic kidney disease, or end stage renal disease; E03.9 Hypothyroidism, unspecified; D63.1 Anemia in chronic kidney disease; E11.22 Type 2 diabetes mellitus with diabetic chronic kidney disease; K59.00 Constipation, unspecified; E87.6 Hypokalemia; E78.00 Pure hypercholesterolemia, unspecified; R00.1 Bradycardia, unspecified; J45.909 Unspecified asthma, uncomplicated; M19.90 Unspecified osteoarthritis, unspecified site; F32.9 Major depressive disorder, single episode, unspecified; J20.9 Acute bronchitis, unspecified; M54.5 Low back pain; Z96.653 Presence of artificial knee joint, bilateral; Z79.899 Other long term (current) drug therapy; Z79.4 Long term (current) use of insulin; Z86.73 Personal history of transient ischemic attack (TIA), and cerebral infarction without residual deficits; Z88.2 Allergy status to sulfonamides; Z88.8 Allergy status to other drugs, medicaments and biological substances; Z88.0 Allergy status to penicillin; Z91.013 Allergy to seafood
CPT/HCPCS: 36415; 71045; 76770; 80048; 80053; 81001; 82550; 82553; 82607; 82728; 82746; 82803; 82962; 83036; 83540; 83550; 83735; 83880; 83970; 84100; 84439; 84443; 84466; 84484; 84550; 85025; 85027; 85045; 87040; 93005; 93010; 93306; 93976; 94640; 94660; 96374; 99285; G8978-GP; G8979-GP; J1815; J1940; J2920; J3370; J3490; J7060; J7620; Q0139

== ENCOUNTER 2017-09-03 09:02 | Outpatient (CLI) | payer MEDICARE ==
[2017-09-03] MEDS ORDERED: FERUMOXYTOL (ESRD) 510 MG/NS 100 ML IV PRN ×2 (09:18)
[2017-09-03 10:15] VITALS: BP 118/37
== END 2017-09-03 11:04 | disposition home or self-care (01) ==
LOC: II 09:02 → 5TH 09:20 → II 11:04
PROVIDERS: ATTEND Internal Medicine Nephrology
PROC: 3E033GC Introduction of Other Therapeutic Substance into Peripheral Vein, Percutaneous Approach (ICD-10-PCS; principal; 2017-09-03)
DX: D50.9 Iron deficiency anemia, unspecified (principal); N18.9 Chronic kidney disease, unspecified
CPT/HCPCS: 96365; Q0139